=== PATIENT | female | born 1985 | race Caucasian/White ===

== ENCOUNTER 2017-06-26 06:00 | Inpatient (IN) ==
[2017-06-26] MEDS ORDERED: CALCIUM CARBONATE Chewable 500mg TABLET PO PRN ×2 (06:08→13:33)
[2017-06-26] MEDS ORDERED: METHYLERGONOVINE 0.2 MG/ML INJECTION IM PRN (06:08)
[2017-06-26] MEDS ORDERED: OXYTOCIN DRIP 30 UNIT/500 ML ML IV PRN (06:08)
[2017-06-26] MEDS ORDERED: CARBOPROST 250 MCG/ML INJECTION IM PRN (06:08)
[2017-06-26] MEDS ORDERED: LIDOCAINE 1% (10mg/ml) 2mL INJ PF SDV ID PRN (06:08)
[2017-06-26] MEDS ORDERED: MAG-AL + SIM ORAL LIQUID 30ml PO PRN ×2 (06:08→13:33)
[2017-06-26] MEDS ORDERED: ACETAMINOPHEN 500 MG TABLET PO PRN ×2 (06:08→13:33)
[2017-06-26] MEDS ORDERED: D5LR 1,000 ML IV PRN (06:08)
--- OUTSIDE RECORDS SUMMARY | 2017-06-26 06:10 | External Medical Summary | Continuity of Care Document ---
:1985 Author Organization [facility] Address [address] [place], [place] [id number] Phone Care Team Providers Name Role Phone Meredith Landaverde MD Unavailable Unavailable Allergies, Adverse Reactions, Alerts Substance Reaction Severity Status No Known Drug Allergies Unknown Active Medications Medication Instructions Dosage Effective Dates (start - Status Comments stop) folic acid 0.8 mg capsule - Active ORAL TABLET - Active Problems Condition Effective Dates (start - stop) Clinical Status Partial Placenta Previa Nos Or W/out - Hemorrhage, Second Trimester 20 weeks gestation of - Encounter for suprvsn of normal - , first trimester 11 weeks gestation of - Encounter for suprvsn of normal - , second trimester Encounter For Screening For - Malformations 20 weeks gestation of - Encounter for suprvsn of normal - , second trimester 15 weeks gestation of - Irregular Bleeding Active Procedures Procedure Date OB Visit No Charge Results Test Name Date and Time Measure Units Reference Range Abnormal Flag Comments Unknown Advance Directives Directive Yes / No Effective Date File Name Unknown Encounters Encounter Practice Location Reason(s) Diagnoses Date Provider Care Team Description For Visit Members Nayely [place] Partial Placenta Zuleta Referring In Womens Previa Nos Or 4-201 Danita. Provider: Health PA, W/out Hemorrhage, 7 700 Lucie [address] [facility] Meli, 1522, [id number] weeks Center [address] [place], gestation of Adrian Quinonez, 120, Center [id number], [place], [facility] 120, [place] FISHER, tel:[phone] [place], , [place]. [id number]. tel: tel: [phone] Nayely [place] Encounter for Oct-0 Tadeo Referring In Womens Ultrasound suprvsn of normal 4-201 Sushil. 700 Provider: [facility] AMANDA, , second 7 Medical Lucie [address] trimesterEncounte [place] Cale [place], 1522, r For Adrian Quinonez, Screening For 120, Medical NATALIA, [id number] [facility] [id number], weeks gestation NATALIA Adrian 120, [place] [id number] [place], tel: , [place]. [place], tel: [phone]. [id number] tel:[phone] Nayely [place] Encounter for Aug-3 Tadeo Referring In Womens suprvsn of normal 0-201 Sushil. 700 Provider: Health AMANDA, , second 7 Medical Lucie [address] [email or web address] weeks [place] Cale [place], 1522, gestation of [place] Quinonez, 120, Medical [place] [facility] [id number], [place]IA, [facility] 120, [place] [id number] [place], tel: , [place]. [place], tel: [phone]. [id number] tel:[phone] Nayely [place] Encounter for Aug-0 Tadeo Referring In Womens suprvsn of normal 3-201 Sushil. 700 Provider: Health AMANDA, , first 7 Medical Lucie [address] [id number] weeks [place] Cale G[place], 1522, gestation of [place] Quinonez, 120, Medical [place] [facility] [id number], [place], [facility] 120, [place] [id number] [place], tel: , [place], tel:[phone]. [id number] tel:[phone] Family History Family Member Diagnosis Age At Onset No family history of Breast Cancer No family history of Thyroid Disorder No family history of Diabetes No family history of Epilepsy No family history of Osteoporosis No family history of Cardiovascular Disease No family history of Kidney Disease No family history of Lung Disease No family history of Ovarian Cancer No family history of Uterine Cancer No family history of Colon Cancer No family history of Hypertension No family history of Stroke Immunizations Vaccine Date Status Comments Unknown Payers Payer name Insurance type Covered libertarian ID Authorization(s) [employer] [id number] Social History Type Description Quantity Date Captured Alcohol Use Details No Caffeine Use Details Unknown Tobacco Use Status Unknown Smoking Status Never smoker Vital Signs Date / Height Weight BMI Pulse Blood Temperature Respiratory Body Head BMI Time: Rate Pressure Rate Surface Circumference percentile Area 153.60 23.3 106/ lbs 5 mm[Hg] 4:10 kg/m PM eter (2) Chief Complaint And Reason For Visit Unknown Chief Complaint And Reason For Visit Reason For Referral Reason For Referral Unknown Plan Of Care Date Type Action Status Appointment Lori Valdez BOOKED Future Order: Radiology Order Complete OB Ultrasound > 14 Ordered Weeks ([id number]) Date Type Problem Goal Intervention Status Start Date Unknown. History Of Present Illness Encounter Date Complaint History Of Present Illness This patient has no known history of present illness Functional Status Encounter Date Functional Assessment Cognitive Assessment Unknown Medications Administered Medication Instructions Dosage Effective Dates (start - stop) Status Comments Drug Treatment Unknown Instructions Date Instruction Additional Information environmental / work hazards travel use of any medications (including supplements, vitamins, herbs, OTC drugs) domestic violence seat belt use childbirth classes / hospital facilities hospital registration genetic testing new ob handbook Zika virus assessment & precautions sexual activity exercise indications for ultrasound influenza vaccine HIV and other routine tests risk factors identified by history anticipated course of care nutrition and weight gain counseling, special diet toxoplasmosis precautions (cats / raw meat)
--- OUTSIDE RECORDS SUMMARY | 2017-06-26 06:10 | External Medical Summary ---
:1985 Author Organization [facility]. Summary purpose CCDA Sent to [facility] Chief Complaint and Reason for Visit Admit Diagnosis 1 SUPERVIS OTH NORMAL PREG Problem list No authorized problems tracked for continuity of care are available for this visit. Encounters No authorized problems tracked for encounter diagnoses are available for this visit. Medications No home medications recorded for this patient visit Allergies, adverse reactions, alerts Allergen Category Ingredient Status Reaction Severity Onset No Allergy Information Drug No Allergy Information Active Available Available Immunizations No immunizations recorded for this patient visit Relevant diagnostic tests and/or laboratory data RESULTS CBC [id number]:05:00 HGB 13.4 Chemistry Group [id number]:05:00 Glucose Fasting 77 History of procedures Procedure Code Code Type Description Date Performed Performing Physician 85753 CPT-4 ROUTINE VENIPUNCTURE 02-02-2015 [facility] 03760 CPT-4 ROUTINE VENIPUNCTURE 02-02-2015 [facility] 14859 CPT-4 ASSAY GLUCOSE BLOOD 02-02-2015 [facility] QUANT 29274 CPT-4 GLUCOSE TEST 02-02-2015 [facility] 73253 CPT-4 HEMOGLOBIN 02-02-2015 [facility] Functional status No functional or cognitive status observations are available for this visit. Vital signs No authorized vital signs are available for this visit. Social history No Social History or smoking status observations were recorded for this visit. ( Unknown if ever smoked.) Treatment Plan No treatment plan text is available for this visit. Hospital discharge instructions No discharge instruction text is available for this visit.
--- OUTSIDE RECORDS SUMMARY | 2017-06-26 06:10 | External Medical Summary | Continuity of Care Document ---
:1985 Author Organization [facility] Address [address] [place], [place] [id number] Phone Care Team Providers Name Role Phone Meredith Landaverde MD Unavailable Unavailable Allergies, Adverse Reactions, Alerts Substance Reaction Severity Status No Known Drug Allergies Unknown Active Medications Medication Instructions Dosage Effective Dates (start - Status Comments stop) folic acid 0.8 mg capsule - Active ORAL TABLET - Active Problems Condition Effective Dates (start - stop) Clinical Status Encounter for suprvsn of normal - , third trimester 32 weeks gestation of - Encounter for suprvsn of normal - , first trimester 11 weeks gestation of - Partial Placenta Previa Nos Or W/out - Hemorrhage, Second Trimester 20 weeks gestation of - Partial Placenta Previa Nos Or W/out - Hemorrhage, Third Trimester 32 weeks gestation of - Encounter for suprvsn of normal - , second trimester Encounter For Screening For - Malformations 20 weeks gestation of - Encounter for suprvsn of normal - , second trimester 24 weeks gestation of - Encounter for suprvsn of normal - , second trimester 15 weeks gestation of - Encounter for suprvsn of normal - , third trimester 28 weeks gestation of - Encounter for suprvsn of normal - , third trimester 30 weeks gestation of - Encounter for suprvsn of normal - , third trimester 34 weeks gestation of - Irregular Bleeding Active Procedures Procedure Date OB Visit No Charge Results Test Name Date and Time Measure Units Reference Range Abnormal Flag Comments Unknown Advance Directives Directive Yes / No Effective Date File Name Unknown Encounters Encounter Practice Location Reason(s) Diagnoses Date Provider Care Team Description For Visit Members Nayely [place] Encounter for Martínez Referring In Womens suprvsn of normal 0-201 Jaqueline. Provider: Health AMANDA, , third 8 700 Sushil [address] [email or web address] weeks Medical Tadeo R, 1522, gestation of [place] [address], [facility], 120, [place] [id number], [place], [facility] 120, [place] FISHER, tel: [phone] [place], , [place]. [id number]. tel: tel: [phone] Nayely [place] Encounter for Dec-2 Tadeo Referring In Womens suprvsn of normal 7-201 Sushil. 700 Provider: Pierre PATEL, , third 7 Medical Lucie [address] [email or web address] weeks [place] Cale [place], 1522, gestation of [place] Quinonez, 120, Medical [place] [facility] [id number], [place], [facility] 120, [place] [id number] [place], tel: , . [place], tel: [phone]. [phone] tel:[phone] Nayely [place] Partial Placenta Dec-2 Tadeo Referring In Womens Ultrasound Previa Nos Or 7-201 Sushil. 700 Provider: Health AMANDA, W/out Hemorrhage, 7 Medical Lucie PO Box Third [id number] [place] Cale [place], 1522, weeks gestation Adrian Quinonez, of 120, Medical [facility] [id number], [place], [facility] 120, [place] [id number] [place], tel: , . [place], tel: [phone]. [phone] tel:[phone] Nayely [place] Encounter for Dec-1 Tadeo Referring In Womens suprvsn of normal 3-201 Sushil. 700 Provider: Health AMANDA, , third 7 Medical Lucie [address] Box [email or web address] weeks Center Cale [place], 1522, gestation of [place] Quinonez, 120, Medical [place] [facility] [id number], [place], [facility] 120, [place] [id number] [place], tel: , [place]. [place], tel: [phone]. [phone] tel:[phone] Nayely [place] Encounter for Nov-2 Tadeo Referring In Womens suprvsn of normal 9-201 Sushil. 700 Provider: Pierre PATEL, , third 7 Medical Lucie PO Box weeks [place] Cale [place], 1522, gestation of [place] Quinonez, 120, Medical [place] [facility] [id number], [place], [facility] 120, [place] [id number] [place], tel: , [place]. [place], tel: [phone]. [phone] tel:[phone] Nayely [place] Encounter for Nov-0 Tadeo Referring In Womens suprvsn of normal 3-201 [place]. 700 Provider: Pierre PATEL, , second 7 Medical Lucie PO Box [id number] weeks [place] Cale [place], 1522, gestation of Adrian Quinonez, 120, [facility] [place] [facility] [id number], [place], [facility] 120, [place] [id number] [place], tel: , [place]. [place], tel: [phone]. [phone] tel:[phone] Nayely [place] Partial Placenta Oct-0 Zuleta Referring In Womens Previa Nos Or 4-201 Danita. Provider: Health AMANDA, W/out Hemorrhage, 7 700 Lucie PO Box Second [facility] Cale Garrison, 1522, [id number] weeks Miguel Lau, gestation of Adrian Quinonez, 120, Center [id number], [place], [facility] 120, [place] FISHER, tel: [phone] [place], , [place]. [id number]. tel: tel:[phone] Nayely [place] Encounter for Oct-0 Tadeo Referring In Womens Ultrasound suprvsn of normal 4-201 Sushil. 700 Provider: Health AMANDA, , second 7 Medical Lucie PO Box trimesterEncounte Center Cale [place]arrison, 1522, r For [place] Quinonez, Screening For 120, Medical NATALIA, [id number] [facility] [id number], weeks gestation NATALIA, Adrian 120, [place] [id number] [place], tel: , [place]. [place], tel: [phone]. [id number] tel:[phone] Nayely [place] Encounter for Dec-3 Tadeo Referring In Womens suprvsn of normal 0-201 Sushil. 700 Provider: Health AMANDA, , second 7 Medical Lucie Gonzalez [email or web address] weeks Center Cale G[place], 1522, gestation of [place] Quinonez, 120, Medical [place] [facility] [id number], [place], [place] 120, [place] [id number] [place], tel: , [place]. [place], tel: [phone]. [id number] tel:[phone] Nayely [place] Encounter for Aug-0 Tadeo Referring In Womens suprvsn of normal 3-201 Sushil. 700 Provider: Pierre PATEL, , first 7 Medical Lucie Gonzalez [id number] weeks Center Cale G[place], 1522, gestation of [place] Quinonez, 120, Medical [place] [facility] [id number], [place], [place] 120, [place] [id number] [place], tel: , [place]. NATALIA, tel: [phone]. [phone] tel:[phone] Family History Family Member Diagnosis Age At [...] of Stroke Immunizations Vaccine Date Status Comments Tdap completed Source: New Immunization Record Payers Payer name Insurance type Covered green party ID Authorization(s) [facility] [id number] [employer] [place] [id number] [facility] [id number] [employer] [place] [id number] Social History Type Description Quantity Date Captured Alcohol Use Details No Caffeine Use Details Unknown Tobacco Use Status Unknown Smoking Status Never smoker Vital Signs Date / Height Weight BMI Pulse Blood Temperature Respiratory Body Head BMI Time: Rate Pressure Rate Surface Circumference percentile Area 167.80 25.5 / lbs 1 mm[Hg] 2:20 kg/m PM eter (2) Chief Complaint And Reason For Visit Unknown Chief Complaint And Reason For Visit Reason For Referral Reason For Referral Unknown Plan Of Care Date Type Action Status Appointment Lori Valdez BOOKED Future Order: Radiology Order Ultrasound OB Follow-up ([id number]) Ordered Future Order: Radiology Order Complete OB Ultrasound > 14 Ordered Weeks ([id number]) Date Type Problem Goal Intervention Status Start [...]
--- OUTSIDE RECORDS SUMMARY | 2017-06-26 06:10 | External Medical Summary | Continuity of Care Document ---
:1985 Author Organization [facility] Address [address] [place], [place] [address] Phone Care Team Providers Name Role Phone [...] third trimester 28 weeks gestation of - Irregular Bleeding Active Procedures Procedure Date OB Visit No Charge Results Test Name Date and Time Measure Units Reference Range Abnormal Flag Comments Unknown Advance Directives Directive Yes / No Effective Date File Name Unknown Encounters Encounter Practice Location Reason(s) Diagnoses Date Provider Care Team Description For Visit Members Nayely [place] Encounter for Dec-2 Tadeo Referring In Womens suprvsn of normal 7-201 Sushil. 700 Provider: Health PA, , third 7 Medical Lucie [address] Box [id number] weeks Center Cale [place], 1522, gestation of [place] Quinonez, 120, Medical [place] [facility] [id number], [place], [facility] 120, [place] [id number] [place], tel:+ , [place]. NAT[place]IA, tel: [phone]. [phone] tel:[phone] Nayely [place] Partial Placenta Dec-2 Tadeo Referring In Womens Ultrasound Previa Nos Or 7-201 Sushil. 700 Provider: Health AMANDA, W/out Hemorrhage, 7 Medical Lucie PO Box Third [id number] Center Cale Garrison, 1522, weeks gestation Adrian Quinonez, of 120, [facility] [place] [facility] [id number], [place], [facility] 120, [place] [id number] [place], tel: , . NATALIA, tel: [phone]. [phone] tel:[phone] Nayely [place] Encounter for Dec-1 Tadeo Referring In Womens suprvsn of normal 3-201 Sushil. 700 Provider: Health PA, , third 7 Medical Lucie [address] Box [email or web address] weeks Center Cale G[place], 1522, gestation of [place] Quinonez, 120, Medical [place] [facility] [id number], [place], [facility] 120, [place] [id number] [place], tel: , . NATALIA, tel: [phone]. [phone] tel:[phone] Nayely [place] Encounter for Nov-2 Tadeo Referring In Womens suprvsn of normal 9-201 Sushil. 700 Provider: Health PA, , third 7 Medical Lucie PO Box [id number] weeks [place] Cale Garrison, 1522, gestation of Adrian Quinonez [place], 120, Medical [place] [facility] [id number], NATALIA, [facility] 120, [place] [id number] [place], tel:+ , [place]. [place], tel: [phone]. [phone] tel:[phone] Nayely [place] Encounter for Nov-0 Tadeo Referring In Womens suprvsn of normal 3-201 Sushil. 700 Provider: Pierre PATEL, , second 7 Medical Lucie PO Box [id number] weeks [place] Cale Garrison, 1522, gestation of Adrian Quinonez [place], 120, Medical [place] [facility] [id number], NATALIA, [facility] 120, [place] [id number] [place], tel:+ , [place]. [place], tel: [phone]. [id number] tel:[phone] Nayely [place] Partial Placenta Oct-0 Zuleta Referring In Womens Previa Nos Or 4-201 Danita. Provider: Pierre PATEL, W/out Hemorrhage, [address] [place] [address] Cale Garrison, 1522, [id number] weeks [place], gestation of Dr [facility] Cristiano [place], 120, [place] [id number], [facility], [place] FISHER, tel: [phone] NATALIA, , [place]. [id number]. tel: tel: [phone] Nayely [place] Encounter for Oct-0 Tadeo Referring In Womens Ultrasound suprvsn of normal 4-201 Sushil. 700 Provider: Pierre PATEL, , second 7 Medical Lucie PO Box trimesterEncounte Center Cale Garrison, 1522, r For Adrian Quinonez, Screening For 120, Medical NATALIA, [id number] [facility] [id number], weeks gestation NATALIA [facility] 120, [place] [id number] [place], tel: , [place]. [place], tel: [phone]. [id number] tel:[phone] Nayely [place] Encounter for Aug-3 Tadeo Referring In Womens suprvsn of normal 0-201 Sushil. 700 Provider: Pierre PATEL, , second 7 Medical Lucie PO Box [email or web address] weeks Center Cale G[place], 1522, gestation of [place] Quinonez, 120, Medical [place] [facility] [id number], [place], [facility] 120, [place] [id number] [place], tel: , . NATALIA, tel: [phone]. [id number] tel:[phone] Nayely [place] Encounter for Tadeo Referring In Womens suprvsn of normal 3-201 [place]. 700 Provider: Pierre PATEL, , first 7 Medical Lucie PO Box [email or web address] weeks Center Cale Garrison, 1522, gestation of [place] Quinonez, 120, Medical [place] [facility] [id number], [place], [facility] 120, [place] [id number] [place], tel: , . NATALIA, tel: [phone]. [id number] tel:[phone] Family History Family Member Diagnosis Age At [...] Unknown Payers Payer name Insurance type Covered green party ID Authorization(s) [facility] [id number] [employer] [place] - [place] [id number] Social History Type Description Quantity Date Captured Alcohol Use Details No Caffeine Use Details Unknown Tobacco Use Status Unknown Smoking Status Never smoker Vital Signs Date / Height Weight BMI Pulse Blood Temperature Respiratory Body Head BMI Time: Rate Pressure Rate Surface Circumference percentile Area 165.70 25.1 lbs 9 mm[Hg] 3:33 kg/m PM eter (2) Chief Complaint And Reason For Visit Unknown Chief Complaint And Reason For Visit Reason For Referral Reason For Referral Unknown Plan Of Care Date Type Action Status Appointment Lori Valdez BOOKED Future Order: Radiology Order Ultrasound OB Follow-up ([id number]) Ordered Future Order: Radiology Order Complete OB Ultrasound > 14 Ordered Weeks ([id number]) Date Type Problem Goal Intervention Status Start [...]
--- OUTSIDE RECORDS SUMMARY | 2017-06-26 06:10 | External Medical Summary | Continuity of Care Document ---
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 Results Test Name Date and Time Measure Units Reference Range Abnormal Flag Comments Panel Description: OBSTETRIC PANEL WHITE BLOOD CELL 8.4 Thousand/uL 3.8-10.8 N COUNT 11:42:00 RED BLOOD CELL 4.65 Million/uL 3.80-5.10 N COUNT 11:42:00 HEMOGLOBIN 14.6 g/dL 11.7-15.5 N 11:42:00 HEMATOCRIT 42.5 % 35.0-45.0 N 11:42:00 MCV 91.4 fL 80.0-100.0 N 11:42:00 MCH 31.4 pg 27.0-33.0 N 11:42:00 MCHC 34.4 g/dL 32.0-36.0 N 11:42:00 RDW 12.6 % 11.0-15.0 N 11:42:00 PLATELET COUNT 315 Thousand/uL 140-400 N 11:42:00 MPV 10.0 fL 7.5-12.5 N 11:42:00 ABSOLUTE 6208 cells/uL 4398-0994 N NEUTROPHILS 11:42:00 ABSOLUTE 1630 cells/uL 850-3900 N LYMPHOCYTES 11:42:00 ABSOLUTE 437 cells/uL 200-950 N MONOCYTES 11:42:00 ABSOLUTE 109 cells/uL 15-500 N EOSINOPHILS 11:42:00 ABSOLUTE 17 cells/uL 0-200 N BASOPHILS 11:42:00 NEUTROPHILS 73.9 % N 11:42:00 LYMPHOCYTES 19.4 % N 11:42:00 MONOCYTES 5.2 % N 11:42:00 EOSINOPHILS 1.3 % N 11:42:00 BASOPHILS 0.2 % N 11:42:00 ANTIBODY SCREEN, NO ANTIBODIES N RBC W/REFL ID, 11:42:00 DETECTED Reference range TITER AND AG No antibodies detected This assay is a screening test for the detection of red blood cell antibodies. The test is not to be used for pretransfusion screening or for the medical management of an alloimmunized . ABO GROUP O 11:42:00 RH TYPE RH(D) 11:42:00 POSITIVE RPR (DX) W/REFL NON-REACTIVE NON-REACTIV N TITER AND 11:42:00 E CONFIRMATORY TESTING HEPATITIS B NON-REACTIVE NON-REACTIV N SURFACE ANTIGEN 11:42:00 E RUBELLA ANTIBODY 4.22 index N Index (IGG) 11:42:00 Interpretation ----- <0.90 Not consistent with Immunity 0.90-0.99 Equivocal > or=1.00 Consistent with Immunity The presence of rubella IgG antibody suggests immunization or past or current infection withrubella virus.Test performed [place] [address]Dxoixyz r: BISMARK MESA DO,MPH Panel Description: HIV 1/2 ANTIGEN/ANTIBODY,FOURTH GENERATION W/RFL HIV NON-REACTIVE NON-REACTIVE N HIV-1 antigen and HIV-1/HIV- 2 antibodies were AG/AB, 11:42:00 notdetected. There is no laboratory evidence of 4TH GEN HIVinfection. PLEASE NOTE: This information has been disclosed toyou from records whose confidentiality may beprotected by state law. If your state requires suchprotection, then the state law prohibits you frommaking any further disclosure of the informationwithout the specific written consent of the personto whom it pertains, or as otherwise permitted by law.A general authorization for the release of medical orother information is NOT sufficient for this purpose. For additional information please refer tohttp://education.Clickatell/faq/GDH112(This link is being provided for informational/educational purposes only.) The performance of this assay has not been clinicallyvalidated in patients less than 2 years old. Test performed [place] [address]Gabbsnro: BISMARK MESA DO,MPH Panel Description: Bacteria identified in Urine by Culture CULTURE, URINE, 11:40:00 SEE NOTE A CULTURE, URINE, ROUTINE ROUTINE MICRO NUMBER: [id number] TEST STATUS: PRELIMINARY SPECIMEN SOURCE: URINE SPECIMEN QUALITY: ADEQUATE RESULT: 50,000-100,000 CFU/mL of Escherichia coli , susceptibility test report to follow.REPORT COMMENT:RTest performed [place] [address]Wiwztytn: BISMARK MESA DO,MPH Panel Description: Bacteria identified in Urine by Culture CULTURE, URINE, 11:40:00 SEE NOTE A CULTURE, URINE, ROUTINE ROUTINE MICRO NUMBER: [id number] TEST STATUS: FINAL SPECIMEN SOURCE: URINE SPECIMEN QUALITY: ADEQUATE RESULT: 50,000-100,000 CFU/mL of Escherichia coli E.coli INT NALINI AMOX/CLAVULANATE S 4 AMPICILLIN S 8 AMP/SULBACTAM S 4 CEFAZOLIN NR <=4 1 CEFEPIME S <=1 CEFTRIAXONE S <=1 CIPROFLOXACIN S <=0.25 ERTAPENEM S <=0.5 GENTAMICIN S <=1 IMIPENEM S <=0.25 LEVOFLOXACIN S <=0.12 NITROFURANTOIN S <=16 PIP/TAZOBACTAM S <=4 TOBRAMYCIN S <=1 TRIMETHOPRIM/SULFA S <=20S=Susceptible I=Intermediate R=Resistant *=Not TestedNR=Not Reported NN=See Therapy CommentsTHERAPY COMMENTS Note 1: ORAL therapy: A cefazolin NALINI of < 32 predicts susceptibility to the oral agents cefaclor, cefdinir, cefpodoxime, cefprozil, cefuroxime, cephalexin, and loracarbef when used for therapy of uncomplicated UTIs due to E. coli, K. pneumoniae, and P. mirabilis. PARENTERAL therapy: A cefazolin NALINI of > 8 indicates resistance to parenteral cefazolin. An alternate test method must be performed to to confirm susceptibility to parenteral cefazolin.REPORT COMMENT:RTest performed at [facility] [id number] [facility] [place] [address]Jwoyteli: BISMARK MESA DO,MPH Panel Description: CHLAMYDIA/N. GONORRHOEAE RNA, TMA CHLAMYDIA NOT DETECTED NOT DETECTED N TRACHOMATIS RNA, 11:30:00 TMA NEISSERIA NOT DETECTED NOT DETECTED N GONORRHOEAE RNA, 11:30:00 TMA [id number] SEE NOTE This test was 11:30:00 performed using the APTIMA COMBO2 Assay([employer] The analytical performance characteristics of this assay, when used to test SurePath specimens havebeen determined by [employer]. Test performed at [facility] [id number] [place] [address]Iwojbhjd: BISMARK MESA DO,MPH Panel Description: Pap Smear With HPV Reflex If ASCUS Document Advance Directives Directive Yes / No Effective Date File Name Unknown Encounters Encounter Practice Location Reason(s) Diagnoses Date Provider Care Team Description For Visit Members Nayely [place] Encounter for Nov-0 Tadeo Referring In Womens suprvsn of normal 3-201 [place]. 700 Provider: Pierre PATEL, , second 7 Medical Lucie MALIN Box [email or web address] weeks [place] aCle [place], 1522, gestation of Adrian Quinonez, 120, Medical [facility] [id number], [facility] 120, [place] [id number] [place], tel: , [place]. [place], tel:[phone]. [id number] tel:[phone] Nayely [place] Partial Placenta Oct-0 Zuleta Referring In Womens Previa Nos Or 4-201 Dan[place]. Provider: Pierre PATEL, W/out Hemorrhage, [address] [place], [place] [address]lv Gonzalez [facility] Cale [place], 1522, [id number] weeks [place] Niya Lau, gestation of Dr [facility] Cristiano [place], 120, Center [id number], [facility], [place] FISHER, tel:[phone] [place], , [place]. [id number]. tel: tel: [phone] Nayely [place] Encounter for Oct-0 Tadeo Referring In Womens Ultrasound suprvsn of normal 4-201 [place]. 700 Provider: Pierre PATEL, , second 7 Medical Lucie Gonzalez trimesterEncounte Center Cale [place], 1522, r For Adrian Quinonez, Screening For 120, Medical NATAILA, [id number] [facility] [id number], weeks gestation [facility] 120, [place] of [id number] [place], tel:2 , [place]. [place] tel: [phone]. [id number] tel:[phone] Nayely [place] Encounter for Tadeo Referring In Womens suprvsn of normal 0-201 [place]. 700 Provider: Health PA, , second 7 Medical Lucie MALIN Box [id number] weeks Center Cale [place], 1522, gestation of Adrian Quinonezchita, 120, Medical [place] [facility] [id number], [place], [facility] 120, [place] [id number] [place], tel: , . [place], tel: [phone]. [id number] tel:[phone] Nayely [place] Encounter for Tadeo Referring In Womens suprvsn of normal 3-201 [facility] 700 Provider: Health PA, , first 7 Medical Lucie MALIN Box [id number] weeks Center Cale [place], 1522, gestation of Adrian Quinonezta, 120, Medical [facility] [id number], [place], [facility] 120, [place] [id number] [place], tel: , [facility], tel: [phone]. [id number] tel:[phone] Family History Family Member Diagnosis Age At [...] name Insurance type Covered libertarian ID Authorization(s) [facility] [id number] UHC Plan Of [place] - Medicaid MC [id number] Social History Type Description Quantity Date Captured Alcohol Use Details No Caffeine Use Details No Tobacco Use Status Never smoked tobacco Smoking Status Never smoker Vital Signs Date / Height Weight BMI Pulse Blood Temperature Respiratory Body Head BMI Time: Rate Pressure Rate Surface Circumference percentile Area 139.70 21.2 113/80 -2017 lbs 4 mm[Hg] 10:50 kg/m AM eter (2) Chief Complaint And Reason For Visit Unknown Chief Complaint And Reason For Visit Reason For Referral Reason For Referral Unknown Plan Of Care Date Type Action Status Appointment Lori Valdez BOOKED Future Order: Radiology Order Complete OB Ultrasound > 14 Ordered Weeks ([id number]) Date Type Problem Goal Intervention Status Start [...]
--- OUTSIDE RECORDS SUMMARY | 2017-06-26 06:10 | External Medical Summary | Continuity of Care Document ---
:1985 Author Organization [facility] [employer] [facility] Address [address] [place], [place] [address] Phone Care Team Providers Name Role Phone [...] - Irregular Bleeding Active Procedures Procedure Date Ultrasound exam of preg uterus, complete Results Test Name Date and Time Measure Units Reference Range Abnormal Flag Comments Unknown Advance Directives Directive Yes / No Effective Date File Name Unknown Encounters Encounter Practice Location Reason(s) Diagnoses Date Provider Care Team Description For Visit Members Associates [place] Partial Placenta Zuleta Referring In Womens Previa Nos Or 4-201 Danita. Provider: Health PA, W/out Hemorrhage, 7 700 Lucie [address] [facility] Meli, 1522, [id number] weeks Center 700 [place], gestation of Adrian Quinonez, 120, Center [id number], [place], [facility] 120, [place] FISHER, tel:[phone] [place], , [place]. [id number]. tel: tel:[phone] Nayely [place] Encounter for Oct-0 Tadeo Referring In Womens Ultrasound suprvsn of normal 4-201 [place]. 700 Provider: Health AMANDA, , second 7 Medical Lucie PO Box trimesterEncounte [place] Cale [place], 1522, r For Adrian Quinonez, Screening For 120, Medical NATALIA, [id number] [facility] [id number], weeks gestation Adrian FISHER 120, [place] of [id number] [place], tel: , [place]. [place], tel: [phone]. [id number] tel:[phone] Nayely [place] Encounter for Aug-3 Tadeo Referring In Womens suprvsn of normal 0-201 [place]. 700 Provider: Health AMANDA, , second 7 Medical Lucie PO Box [email or web address] weeks [place]ale [place], 1522, gestation of Adrian Quinonez, 120, Medical [place] [facility] [id number], NATALIA, [facility] 120, [place] [id number] [place], tel: , [place]. [place], tel: [phone]. [id number] tel:[phone] Nayely [place] Encounter for Aug-0 Tadeo Referring In Womens suprvsn of normal 3-201 [place]. 700 Provider: Health AMANDA, , first 7 Medical Lucie PO Box [email or web address] weeks [place] Cale [place], 1522, gestation of Adrian Quinonez, 120, Medical [place] [facility] [id number], [place], [facility] 120, [place] [id number] [place], tel: , [place]. [place], tel: [phone]. [id number] tel:[phone] Family History Family Member Diagnosis Age At [...] Unknown Payers Payer name Insurance type Covered democrat ID Authorization(s) [employer] [id number] Social History Type Description Quantity Date Captured Unknown Vital Signs Date / Height Weight BMI Pulse Blood Temperature Respiratory Body Head BMI Time: Rate Pressure Rate Surface Circumference percentile Area Unknown Chief Complaint And Reason For Visit Unknown Chief Complaint And Reason For Visit Reason For Referral Reason For Referral Unknown Plan Of Care Date Type Action Status Appointment Lori Valdez BOOKED Future Order: Radiology Order Complete OB Ultrasound > 14 Ordered Weeks ([id number]) Date Type Problem Goal Intervention Status Start [...]
--- OUTSIDE RECORDS SUMMARY | 2017-06-26 06:10 | External Medical Summary | Continuity of Care Document ---
:1985 Author Organization [facility] [employer] [facility] Address [address] [place], [place] [phone] Phone Care Team Providers Name Role Phone [...] - Irregular Bleeding Active Procedures Procedure Date Ultrasnd preg uterus, flwup/repeat Results Test Name Date and Time Measure Units Reference Range Abnormal Flag Comments Unknown Advance Directives Directive Yes / No Effective Date File Name Unknown Encounters Encounter Practice Location Reason(s) Diagnoses Date Provider Care Team Description For Visit Members Nayely [place] Encounter for Martínez Referring In Womens suprvsn of normal 0-201 [place]. Provider: Health AMANDA, , third 8 700 [place]ush[place] [address] Box [id number] weeks Medical Tadeo R, 1522, gestation of [place] Niya Lau, Dr [facility], 120, [place] [id number], [place], [facility] 120, [place] FISHER, tel: [phone] [place], , [place]. [id number]. tel: tel: [phone] Nayely [place] Encounter for Apr-2 Tadeo Referring In Womens suprvsn of normal 7-201 [place]. 700 Provider: Pierre PATEL, , third 7 Medical Lucie MALIN Box [id number] weeks [place], 1522, gestation of Adrian Quinonez, 120, Medical [facility] [id number], [place], [facility] 120, [place] [id number] [place], tel: , . [place], tel: [phone]. [id number] tel:[phone] Nayely [place] Partial Placenta Dec-2 Tadeo Referring In Womens Ultrasound Previa Nos Or 7-201 [place]. 700 Provider: Health AMANDA, W/out Hemorrhage, 7 Medical Lucie PO Box Third [id number] [place], 1522, weeks gestation Adrian Quinonez, of 120, Medical [place] [facility] [id number], [place], [facility] 120, [place] [id number] [place], tel: , . [place], tel: [phone]. [id number] tel:[phone] Nayely [place] Encounter for Dec-1 Tadeo Referring In Womens suprvsn of normal 3-201 [place]. 700 Provider: Health AMANDA, , third 7 Medical Lucie PO Box [id number] weeks [place], 1522, gestation of Adrian Quinonez, 120, Medical [place] [facility] [id number], [place], [facility] 120, [place] [id number] [place], tel: , [place]. [place], tel: [phone]. [id number] tel:[phone] Nayely [place] Encounter for Nov-2 Tadeo Referring In Womens suprvsn of normal 9-201 [place]. 700 Provider: Health AMANDA, , third 7 Medical Lucie MALIN Box [id number] weeks [place], 1522, gestation of Adrian Quinonez, 120, Medical [place] [facility] [id number], [place], [facility] 120, [place] [id number] [place], tel: , [place]. [place], tel: [phone]. [id number] tel:[phone] Nayely [place] Encounter for Nov-0 Tadeo Referring In Womens suprvsn of normal 3-201 [place]. 700 Provider: Pierre PATEL, , second 7 Medical Lucie Gonzalez [id number] weeks [place], 1522, gestation of Adrian Quinonez, 120, [facility] [place] [facility] [id number], [place], [facility] 120, [place] [id number] [place], tel: , [place]. [place], tel: [phone]. [id number] tel:[phone] Nayely [place] Partial Placenta Oct-0 Zuleta Referring In Womens Previa Nos Or 4-201 Danita. Provider: Health AMANDA, W/out Hemorrhage, 7 Niya Faulkner PO Box Second [facility] Cale [place]arrison, 1522, [id number] weeks Miguel Lau, gestation of Adrian Quinonez [place], 120, Center [id number], [place], [facility] 120, [place] FISHER, tel: [phone] [place], , [place]. [id number]. tel: tel: [phone] [place] Encounter for Oct-0 Tadeo Referring In Womens Ultrasound suprvsn of normal 4-201 [place]. 700 Provider: Pierre PATEL, , second 7 Medical Lucie PO Box trimesterEncounte Center Cale [place], 1522, r For Adrian Quinonez, Screening For 120, Medical NATALIA, [id number] [facility] [id number], weeks gestation [place], Adrian 120, [place] of [id number] [place], tel: , [place]. [place], tel: [phone]. [id number] tel:[phone] Nayely [place] Encounter for Aug-3 Tadeo Referring In Womens suprvsn of normal 0-201 [place]. 700 Provider: Pierre PATEL, , second 7 Medical Lucie Gonzalez [id number] weeks Center Cale [place], 1522, gestation of Adrian Quinonez, 120, Medical [place] [facility] [id number], [place], Adrian 120, [place] [id number] [place], tel: , [place]. [place], tel: [phone]. [id number] tel:[phone] Nayely [place] Encounter for Aug-0 Tadeo Referring In Womens suprvsn of normal 3-201 [place]. 700 Provider: Pierre PATEL, , first 7 Medical Lucie Gonzalez [id number] weeks Center Cale [place], 1522, gestation of Adrian Quinonez, 120, Medical [place] [facility] [id number], [place], Adrian 120, [place] [id number] [place], tel: , [place]. NATALIA, tel: [phone]. [id number] tel:[phone] Family History Family Member Diagnosis Age At [...] Record Payers Payer name Insurance type Covered libertarian ID Authorization(s) [facility] [id number] [employer] Plan Of [place] - Medicaid MC [id number] [facility] [id number] [employer] [place] - Medicaid [place] [id number] Social History Type Description Quantity Date Captured [...] Future Order: Radiology Order Ultrasound OB Follow-up ([id number]) Ordered Future Order: Radiology Order Complete OB Ultrasound > 14 Ordered Weeks ([id number]) Date Type Problem Goal Intervention Status Start [...]
--- OUTSIDE RECORDS SUMMARY | 2017-06-26 06:10 | External Medical Summary | Continuity of Care Document ---
:1985 Author Organization [facility] Address [address] [place], [place] [phone] Phone Care Team Providers Name Role Phone [...] For Visit Members Nayely [place] Encounter for Tadeo [facility] In [facility] suprvsn of normal 3-201 [place]. 700 Provider: Health PA, , second 7 Medical Lucie PO Box [email or web address] weeks [place] Cale [place], 1522, gestation of Adrian Quinonez, 120, Medical [place] [facility] [id number], [place], [facility] 120, [place] [id number] [place], tel:+ , [place]. [place], tel: [phone]. [id number] tel:[phone] Nayely [place] Partial Placenta Oct-0 Zuleta Referring In Womens Previa Nos Or 4-201 Danita. Provider: Health AMANDA, W/out Hemorrhage, 7 700 Lucie PO Box Second Medical [place] Meli, 1522, [id number] weeks [place] Niya Lau, gestation of Dr Adrian Cristiano FISHER, 120, Center [id number], [facility] 120, [place] FISHER, tel:[phone] [place], , [place]. [id number]. tel: tel: [phone] Nayely [place] Encounter for Oct-0 Tadeo Referring In Womens Ultrasound suprvsn of normal 4-201 [place]. 700 Provider: Pierre PATEL, , second 7 Medical Lucie PO Box trimesterEncounte Center Cale [place], 1522, r For Adrian Quinonez, Screening For 120, Medical NATALIA, [id number] [facility] [id number], weeks gestation [place], [facility] 120, [place] of [id number] [place], tel:+ , [place]. [place], tel: [phone]. [id number] tel:[phone] Nayely [place] Encounter for Aug-3 Tadeo Referring In Womens suprvsn of normal 0-201 [place]. 700 Provider: Pierre PATEL, , second 7 Medical Lucie PO Box [id number] weeks [place] Cale G[place], 1522, gestation of Adrian Quinonez, 120, Medical [place] [facility] [id number], [place], [facility] 120, [place] [id number] [place], tel:+2 , [place]. [place], tel: [phone]. [id number] tel:[phone] Nayely [place] Encounter for Aug-0 Tadeo Referring In Womens suprvsn of normal 3-201 [place] [address] Provider: Health PA, , first 7 Medical Lcuie MALIN Box [id number] weeks Center Cale [place], 1522, gestation of Adrian Quinonez 700 [place], 120, Medical [place], [facility] [id number], NATALIA, [facility] 120, [place] [id number] [place], tel: , [place]. NATALIA, [id number] tel: [phone]. [phone] tel:[phone] Family History Family Member Diagnosis Age At [...] Insurance type Covered green party ID Authorization(s) [facility] [id number] [employer] Plan Of [place] - Medicaid [place] [id number] Social History Type Description Quantity Date Captured Alcohol Use Details No Caffeine Use Details Unknown Tobacco Use Status Unknown Smoking Status Never smoker Vital Signs Date / Height Weight BMI Pulse Blood Temperature Respiratory Body Head BMI Time: Rate Pressure Rate Surface Circumference percentile Area 159.30 24.2 / lbs 2 mm[Hg] 2:08 kg/m PM eter (2) Chief Complaint And Reason For Visit Unknown Chief Complaint And Reason For Visit Reason For Referral Reason For Referral Unknown Plan Of Care Date Type Action Status Appointment Lori Valdez BOOKED Future Order: Radiology Order Complete OB Ultrasound > 14 Ordered Weeks ([id number]) Date Type Problem Goal Intervention Status Start [...]
--- OUTSIDE RECORDS SUMMARY | 2017-06-26 06:10 | External Medical Summary | Continuity of Care Document ---
:1985 Author Organization [facility] Address [address] [place], [place] [address] Phone Care Team Providers Name Role Phone [...] first trimester 11 weeks gestation of - Irregular Bleeding Active Procedures Procedure Date OB Visit No Charge Results Test Name Date and Time Measure Units Reference Range Abnormal Flag Comments Unknown Advance Directives Directive Yes / No Effective Date File Name Unknown Encounters Encounter Practice Location Reason(s) Diagnoses Date Provider Care Team Description For Visit Members Nayely In [place] Encounter Tadeo Referring [facility] for suprvsn -2017 [place]. 700 Provider: AMANDA, PO Box of normal Medical Lucie 1522, , Center [place], [place], second Adrian 120, 700 Medical [id number], [place] [id number] [place] tel:[phone] weeks [place], Adrian 120, 6790 gestation [id number], [place], of [place]. [id number]. tel: tel: [phone] Associates In [place] Encounter Tadeo Referring [facility] for suprvsn -2017 Sush[place]. 700 Provider: DEA PATEL of normal Medical Lucie 1522, , Center Cale Quinonez, [place], [place], first Adrian 120, 700 Medical [id number], [place] [id number] [place], [place] tel:9 weeks [place], Adrian 120, 6790 gestation [id number], [place], [place], of [place]. [id number]. tel: tel: [phone] Family History Family Member Diagnosis Age At [...] Unknown Payers Payer name Insurance type Covered republican ID Authorization(s) [id number] Social History Type Description Quantity Date Captured Alcohol Use Details No Caffeine Use Details Unknown Tobacco Use Status Unknown Smoking Status Never smoker Vital Signs Date / Height Weight BMI Pulse Blood Temperature Respiratory Body Head BMI Time: Rate Pressure Rate Surface Circumference percentile Area 145.70 22.1 125/85 2017 lbs 5 mm[Hg] 4:16 kg/m PM eter (2) Chief Complaint And Reason For Visit Unknown Chief Complaint And Reason For Visit Reason For Referral Reason For Referral Unknown Plan Of Care Date Type Action Status Appointment Lori Valdez BOOKED Appointment Lori Valdez BOOKED Date Type Problem Goal Intervention Status Start [...]
--- OUTSIDE RECORDS SUMMARY | 2017-06-26 06:11 | External Medical Summary ---
:[address] [facility]. Summary purpose CCDA Sent to [facility] Chief Complaint and Reason for [...] Relevant diagnostic tests and/or laboratory data RESULTS [facility] [id number] Result Normal Range Units ABO Type O RH Type Positive Antibody Screen Negative Negative History of procedures Procedure Code Code Type Description Date Performed Performing Physician 37536 CPT-4 BLOOD TYPING SEROLOGIC 10-06-2014 [facility] CPT-4 BLOOD TYPING SEROLOGIC 10-06-2014 [facility] 78888 CPT-4 BLOOD TYPING PATIENT 10-06-2014 [facility] Functional status No functional or cognitive status [...]
--- OUTSIDE RECORDS SUMMARY | 2017-06-26 06:11 | External Medical Summary ---
:1985 Author Organization [facility] Summary purpose CCDA Sent to [facility] Chief Complaint and Reason for Visit No authorized Reason for Visit (Admitting Diagnosis) is available for this visit. Problem list Condition Status Certainty Chronicity Onset .Delivery, vaginal Discharged Encounters The following conditions tracked for encounter diagnoses were recorded for this visit: Finding or Diagnosis Status Certainty Chronicity Onset .Delivery, vaginal Discharged Medications Home Medications Medication Directions Started Status Source folic acid oral oral -Daily Current oral oral -Daily Current Allergies, adverse reactions, alerts Allergen Category Ingredient Status Reaction Severity Onset No Allergy Drug No Allergy Inactive Information Information Available Available No Known Drug No Known Drug No Known Drug Active Allergy Allergy Allergy Immunizations No immunizations recorded for this patient visit Relevant diagnostic tests and/or laboratory data RESULTS 07-33-569480:07:03 Discharge Summary 30 y/o G4now P3 delivered live female at 39 weeks gestation. 8#8oz. Apgars 8/9/9. Induction due to history of fast labors. Labor time 3 hours 45 minute with 5 minute pushing stage. Post- course unremarkable. CBC 62-03-192579:55:00 Result Normal Range Units HGB L 11.9 12.0-16.0 g/dl HCT L 35.1 37.0-47.0 % 52-01-816861:40:00 Result Normal Range Units WBC 6.45 4.8-10.8 x103/mm3 Neutrophil % H 70.1 50-70 % Lymph % 22.8 20-50 % Sublette % 4.0 1.0-9.0 % Eosinophil % 2.8 0-4 % Basophil % 0.3 0-2 % Neutrophil # 4.52 3.0-7.0 x103/mm3 Lymph # 1.47 1.0-4.0 x103/mm3 Sublette # 0.26 0.0-0.8 x103/mm3 Eosinophil # 0.18 0-0.5 x103/mm3 Basophil # 0.02 0-0.2 x103/mm3 RBC 4.35 4.20-5.40 x103/mm3 HGB 13.3 12.0-16.0 g/dl HCT 39.3 37.0-47.0 % MCV 90.3 81-99 FL MCH 30.6 27.0-31.0 pg MCHC 33.8 32.0-36.0 g/dl RDW 12.4 12-15 % Platelet 198 150-400 x103/mm3 MPV H 12.1 6.0-10.0 FL History of procedures Procedure Code Code Type Description Date Performed Performing Physician [id number] ICD10 Delivery of Products of 04-17-2015 SOPHY EARL Conception, External Approach [id number] ICD10 Repair Perineum Skin, 04-17-2015 SOPHY EARL External Approach [id number] ICD10 Drainage of Amniotic 04-17-2015 SOPHY EARL Fl, Therap from POC, Via Opening [id number] ICD10 Introduce of Oth Therap 04-17-2015 SOPHY EARL Subst into Fem Reprod, Via Opening [id number] ICD10 Introduce Regional 04-17-2015 SOPHY EARL Anesth in Epidural Space, Perc [id number] ICD10 Monitoring of POC, 04-17-2015 SOPHY EARL Cardiac Rate, Radio Electronics Technician Approach Functional status Functional Status Finding Observation Time Dexterity Right-handed :46 Weight Bearing Statu Full 34-41-389613:50 Transferring/Ambulat Independent 81-24-723513:46 Bathing Independent :46 Dressing Independent 31-92-543600:46 Eating Independent :46 Drinking Independent :46 Toileting Independent :46 Able to Turn Self in Independent :46 Stairs Independent :46 Cognitive Status Finding Observation Time Level of Consciousne Alert :31 Oriented to Person Yes :[address] Yes :31 Oriented to Time Yes :31 Eyes - KODY Yes 82-07-982360:00 Vital signs Type Value Date Respirations 16 :54 Pulse 66 :54 O2 Saturation 97% :54 Systolic Blood Press 119mm/HG :54 Diastolic Blood Pres 80mm/HG :54 Temperature (Fahr) 98.0Degrees :54 Height 68in :05 Weight 165LB :05 Social history Type Value Smoking Status NEVER SMOKER Treatment Plan Treatment Plan at Dismiss to home. Standard post vaginal delivery instructions given. Plans barrier contraception. Has follow-up appointment in 6 weeks. Hospital discharge instructions Diagnosis term cytotec induction, Diet as avila Activity Level as avila Follow up with [facility] Appointment Date and See Comments Comment: pt is going to make appt Other Instructions call if fever is greater than 101, no intercourse or tampons x 6 weeks. use stool softener as needed. return in 6 weeks for pp check up
--- OUTSIDE RECORDS SUMMARY | 2017-06-26 06:11 | External Medical Summary ---
:1985 Author Organization [facility] Summary purpose CCDA Sent to [facility] Chief Complaint and Reason for Visit No authorized Reason for Visit (Admitting Diagnosis) is available for this visit. Problem list Condition Status Certainty Chronicity Onset .Threatened Premature Labor - not delivered Active Encounters The following conditions tracked for encounter diagnoses were recorded for this visit: Finding or Diagnosis Status Certainty Chronicity Onset .Threatened Premature Labor - not delivered Active Medications No home medications recorded for this patient visit Allergies, adverse reactions, alerts Allergen Category Ingredient Status Reaction Severity Onset No Allergy Drug No Allergy Inactive Information Information Available Available No Known Drug No Known Drug No Known Drug Active Allergy Allergy Allergy Immunizations No immunizations recorded for this patient visit Relevant diagnostic tests and/or laboratory data RESULTS :59:05 Discharge Summary Pt admitted with pre-term contractions. No cervical change noted with overnight observation. CBC :25:00 WBC 10.39 Neutrophil % H 79.0 Lymph % L 13.9 [place] % 5.3 Eosinophil % 1.6 Basophil % 0.2 Neutrophil # H 8.21 Lymph # 1.44 [place] # 0.55 Eosinophil # 0.17 Basophil # 0.02 RBC L 4.01 HGB 12.3 HCT L 36.3 MCV 90.5 MCH 30.7 MCHC 33.9 RDW 12.2 Platelet 204 MPV H 10.9 Urinalysis :20:00 Result Normal Range Units Site VOID Color Yellow Urine Appearance Clear Specific [place] 1.015 pH 7.0 Protein Negative Negative Glucose Negative Negative Ketones Negative Negative Bilirubin Negative Negative Blood Negative Negative Nitrite Negative Negative Urobilinogen 0.2 Leukocyte Negative Negative Reference Lab Group :20:00 Result Normal Range Units Source VAG Result Amended on 2015-03-28 at 11:10:43. Previous status was MS. Culture Group B Strep See Comment .Site: Received : 03/24/15 12:46 .Order#: [id number] Group B Strep Culture FINAL 03/28/15 09:25 .Streptococcus agalactiae - (Group B) .isolated .Organisms are predictably sensitive to Beta-lactam drugs. If Penicillin .allergic, and susceptibility needed, fax add-on request to Client .Services ([phone]) within seven days of final report. BARRERA FOR RESULTS: * - NEW RESULT - RESULT WAS MODIFIED AFTER FINAL STATUS SET Group B Strep Culture performed at [facility] Reference Lab, [facility] [place][note 2] [place] [address] Senior Peoplesoft Developer Tommie Avendano, DO Urinalysis with Microscopic 29-30-293862:20:00 Result Normal Range Units Site VOID Color Yellow Urine Appearance Clear Specific [place] 1.015 pH 7.0 Protein Negative Negative Glucose Negative Negative Ketones Negative Negative Bilirubin Negative Negative Blood Negative Negative Nitrite Negative Negative Urobilinogen 0.2 Leukocyte Negative Negative History of procedures Procedure Code Code Type Description Date Performed Performing Physician G0378 CPT-4 HOSPITAL OBSERVATION 03-23-2015 [place] [address] CPT-4 COMPLETE CBC 03-23-2015 SOPHYISSAC BETANCOURT [facility] AUTOMATED 55323 CPT-4 URINALYSIS AUTO W/O 03-23-2015 [facility] SCOPE J7120 CPT-4 RINGERS LACTATE 03-23-2015 SOPHY ASIA [facility] INFUSION J7042 CPT-4 5% DEXTROSE/NORMAL 03-23-2015 SOPHY AYDEEStephon [facility] SALINE 41769 CPT-4 HYDRATION IV INFUSION 03-23-2015 SOPHY ASIA [facility] INIT 25879 CPT-4 HYDRATE IV INFUSION 03-24-2015 SOPHY ASIA [facility] ADD-ON Functional status Functional Status Finding Observation Time Dexterity Right-handed :16 Weight Bearing Statu Full 87-41-183125:16 Transferring/Ambulat Independent :16 Bathing Independent :16 Dressing Independent :16 Eating Independent :16 Drinking Independent :16 Toileting Independent :16 Able to Turn Self in Independent :16 Stairs Independent 15-99-744010:16 Cognitive Status Finding Observation Time Level of Consciousne Alert :30 Oriented to Person Yes :[address] Yes :30 Oriented to Time Yes :30 Vital signs Type Value Date Respirations 16 :50 Pulse 70 :50 Systolic Blood Press 119mm/HG :50 Diastolic Blood Pres 82mm/HG :50 Temperature (Fahr) 98.3Degrees :20 Height 68in 01-26-372822:20 Weight 163LB 81-10-522925:20 Social history Type Value Smoking Status NEVER SMOKER Treatment Plan Treatment Plan at Di Dismissed to home. Will have biophysical profile done later this morning. Hospital discharge instructions No discharge instruction text is available for this visit.
--- OUTSIDE RECORDS SUMMARY | 2017-06-26 06:11 | External Medical Summary | Continuity of Care Document ---
:1985 Author Organization [facility] Address [address] [place], [place] [address] Phone Care Team Providers Name Role Phone [...] third trimester 30 weeks gestation of - Irregular Bleeding Active Procedures Procedure Date OB Visit No Charge Results Test Name Date and Time Measure Units Reference Range Abnormal Flag Comments Panel Description: Glucose [Mass/volume] in Serum or Plasma --1 hour post 50 g glucose PO GLUCOSE, GESTATIONAL 88 mg/dL <140 N Test performed at [facility] SCREEN (50G)-140 15:10:00 DIAGNOSTICS [id number] [place] [address]Eocsnwwy: BISMARK MESA DO,MPH Panel Description: HEMOGLOBIN + HEMATOCRIT HEMOGLOBIN 15:10:00 11.1 g/dL 11.7-15.5 L HEMATOCRIT 15:10:00 32.9 % 35.0-45.0 L REPORT COMMENT:FASTING :NOTest performed at [facility] [id number] [place] [address]Lszmplev: BISMARK MESA DO,MPH Advance Directives Directive Yes / No Effective Date File Name Unknown Encounters Encounter Practice Location Reason(s) Diagnoses Date Provider Care Team Description For Visit Members Nayely [place] Encounter for Dec-1 Tadeo Referring In Womens suprn of normal 3-201 Sush[address]. 700 Provider: Pierre PATEL, , third 7 Medical Lucie [address] [id number] weeks [place]ale [place], 1522, gestation of [place] Quinonez [place], 120, [facility] [id number], [place], [facility] 120, [id number] [place], tel:+ , [facility], tel: [phone]. [id number] tel:[phone] Nayely [place] Encounter for Nov-2 Tadeo Referring In Womens suprvsn of normal 9-201 Sushil. 700 Provider: Pierre PATEL, , third 7 Medical Lucie [address] [id number] weeks [place]ale [place], 1522, gestation of [place] Quinonez, 120, Medical [facility] [id number], [place], [facility] 120, [place] [id number] [place], tel: , [facility], tel: [phone]. [id number] tel:[phone] Nayely [place] Encounter for Nov-0 Tadeo Referring In Womens suprvsn of normal 3-201 Sushil. 700 Provider: Pierre PATEL, , second 7 Medical Lucie [address] [id number] weeks [place]ale [place], 1522, gestation of [place] Quinonez, 120, Medical [place] [facility] [id number], [place], [place] 120, [place] [id number] [place], tel:+ , [place]. [place], tel: [phone]. [id number] tel:[phone] Nayely [place] Partial Placenta Oct-0 Zuleta Referring In Womens Previa Nos Or 4-201 Danita. Provider: Health AMANDA, W/out Hemorrhage, [address] [place], [place] [id number] PO Box Second [facility] Meli, 1522, [id number] weeks [place] Niya Lau, gestation of Dr [facility], 120, Center [id number], [place], [facility] 120, [place] FISHER, tel:[phone] [place], , [place]. [id number]. tel: tel:[phone] Nayely [place] Encounter for Oct-0 Tadeo Referring In Womens Ultrasound suprvsn of normal 4-201 Sushil. 700 Provider: Pierre PATEL, , second 7 Medical Lucie PO Box trimesterEncounte Center Cale [place], 1522, r For [place] Quinonez, Screening For 120, Medical NATALIA, [id number] [facility] [id number], weeks gestation [place], [facility] 120, [place] of [id number] [place], tel:+ , [place]. [place], tel: [phone]. [id number] tel:[phone] Nayely [place] Encounter for Aug-3 Tadeo Referring In Womens suprvsn of normal 0-201 Sushil. 700 Provider: Pierre PATEL, , second 7 Medical Lucie [address] [id number] weeks [place] Cale [place], 1522, gestation of [place] Quinonez, 120, Medical [place] [facility] [id number], [place], [facility] 120, [place] [id number] [place], tel:+ , [place]. [place], tel: [phone]. [id number] tel:[phone] Nayely [place] Encounter for Aug-0 Tadeo Referring In Womens suprvsn of normal 3-201 Sushil. 700 Provider: Health AMANDA, , first 7 Medical Lucie [address] [id number] weeks Center Cale [place], 1522, gestation of , Adrian 700 [place], 120, Medical [facility] [id number], [place], [facility] 120, [id number] [place], tel: , [place]. NATALIA, [id number] tel: [phone]. [id number] tel:[phone] Family History Family Member Diagnosis Age At [...] name Insurance type Covered democrat ID Authorization(s) [facility] [id number] [employer] Plan Of [place] - Medicaid MC [id number] Social History Type Description Quantity Date Captured Alcohol Use Details No Caffeine Use Details Unknown Tobacco Use Status Unknown Smoking Status Never smoker Vital Signs Date / Height Weight BMI Pulse Blood Temperature Respiratory Body Head BMI Time: Rate Pressure Rate Surface Circumference percentile Area 165.70 25.1 132/86 -2017 lbs 9 mm[Hg] 2:13 kg/m PM eter (2) Chief Complaint And Reason For Visit Unknown Chief Complaint And Reason For Visit Reason For Referral Reason For Referral Unknown Plan Of Care Date Type Action Status Appointment Lori Valdez BOOKED Appointment Lori Valdez BOOKED Future Order: Radiology Order Complete OB Ultrasound > 14 Ordered Weeks ([id number]) Date Type Problem Goal Intervention Status Start [...]
--- OUTSIDE RECORDS SUMMARY | 2017-06-26 06:11 | External Medical Summary | Continuity of Care Document ---
:1985 Author Organization [facility] Address [address] [place], [place] [address] Phone Care Team Providers Name Role Phone [...] W/out Hemorrhage, 7 700 Lucie [address] Box [facility] Meli, 1522, [id number] weeks Center 700 [place], gestation of [place] Quinonez, 120, Center [id number], [place], [facility] 120, [place] FISHER, tel:[phone] [place], , [place]. [id number]. tel: tel: [phone] Nayely [place] Encounter for Oct-0 Tadeo Referring In Womens Ultrasound suprvsn of normal 4-201 Sushil. 700 Provider: [facility] AMANDA, , second 7 Medical Lucie PO Box trimesterEncounte [place] Cale Garrison, 1522, r For Adrian Quinonez, Screening For 120, Medical NATALIA, [id number] [facility] [id number], weeks gestation NATALIA [place] 120, [place] of [id number] [place], tel: , [place]. [place], tel: [phone]. [id number] tel:[phone] Nayely [place] Encounter for Aug-3 Tadeo Referring In Womens suprvsn of normal 0-201 Sushil. 700 Provider: Health AMANDA, , second 7 Medical Lucie PO Box weeks [place] Cale [place], 1522, gestation of [place] Quinonez, 120, Medical [place] [facility] [id number], NATALIA, [facility] 120, [place] [id number] [place], tel: , [place]. [place], tel: [phone]. [id number] tel:[phone] Nayely [place] Encounter for Aug-0 Tadeo Referring In Womens suprvsn of normal 3-201 Sushil. 700 Provider: Health AMANDA, , first 7 Medical Lucie [address] [email or web address] weeks [place] Cale [place], 1522, gestation of [place] Quinonez, 120, Medical [place] [facility] [id number], [place], [facility] 120, [place] [id number] [place], tel: , [place]. [place], tel:[phone]. [phone] tel:[phone] Family History Family Member Diagnosis Age At [...] Insurance type Covered green party ID Authorization(s) [id number] Social History Type Description Quantity Date Captured [...] Complete OB Ultrasound > 14 Ordered Weeks (10034) Date Type Problem Goal Intervention Status Start [...]
--- OUTSIDE RECORDS SUMMARY | 2017-06-26 06:11 | External Medical Summary | Continuity of Care Document ---
:1985 Author Organization [facility] Address [address] [place], [place] [id number] Phone Care Team Providers Name Role Phone Meredith Landaverde MD Unavailable Unavailable Allergies, Adverse Reactions, Alerts Substance Reaction Severity Status Substance Type Unknown Medications Medication Instructions Dosage Effective Dates Status Comments (start - stop) cephalexin 500 mg take 1 capsule by ORAL 500 MG - Active capsule route 3 times every day folic acid 0.8 mg - Active capsule ORAL TABLET - Active Problems Condition Effective Dates (start - stop) Clinical Status Encounter for [employer] [facility] of normal - , first trimester 11 weeks gestation of - Irregular Bleeding Active Procedures Procedure Date Unknown Results Test Name Date and Time Measure Units Reference Range Abnormal Flag Comments Unknown Advance Directives Directive Yes / No Effective Date File Name Unknown Encounters Encounter Practice Location Reason(s) Diagnoses Date Provider Care Team Description For Visit Members [facility] [place] [facility] -2017 [address] 700 DEA PATEL Medical [facility]2, [place] Sid Quinonez [place], [place] 120, [id number], [place], tel:[phone] [place], [phone], [place]. tel:[phone] [facility] [place] Encounter Amana Referring [facility] for [employer] [facility] -2017 Sushil. 700 Provider: DEA PATEL of normal Medical Lucie 1522, , Center Cale [place], NATALIA Lau, first [place] 120, 700 Medical [id number], [place] [id number] [place] tel:+ weeks [place], [place] 120, 6790 gestation [id number], NATALIA [place], of [place]. [id number]. tel: tel: [phone] [facility] [place] [facility] -2017 Sushil. 700 [place], PO [facility] 1522, Center Sid [place], [place], [place] 120, [id number], [place], tel: [place], 6790 [id number], [place]. tel:[phone] Family History Family Member Diagnosis Age At [...] name Insurance type Covered libertarian ID Authorization(s) [employer] [id number] Social History Type Description Quantity Date Captured Alcohol Use Details No Caffeine Use Details Unknown Tobacco Use Status Unknown Smoking Status Unknown Vital Signs Date / Height Weight BMI Pulse Blood Temperature Respiratory Body Head BMI Time: Rate Pressure Rate Surface Circumference percentile Area Unknown Chief Complaint And Reason For Visit Unknown Chief Complaint And Reason For Visit Reason For Referral Reason For Referral Unknown Plan Of Care Date Type Action Status Appointment Lori Valdez BOOKED Future Order: Lab Order Pap Smear With HPV Reflex If ASCUS Ordered ([id number]) Date Type Problem Goal Intervention Status Start [...]
--- OUTSIDE RECORDS SUMMARY | 2017-06-26 06:11 | External Medical Summary | Continuity of Care Document ---
:1985 Author Organization [facility] Allergies Active Description Code Type Severity Reaction Onset Reported/ Identified Relationship Clinical to Patient Status Yes No Known 60477 3 N/A N/A Drug 0 Allergies Yes No Allergy 143 Drug N/A N/A 03/26/2013 Confirmed Information Aller but Available gy inactive Yes No Known 48318 ND N/A N/A 03/24/2015 Confirmed Drug Allergy 590 or Verified Medications Medication Packaging Start Date Stop Date Route Dosage Sig Capsule 12/16/2016 12/22/2016 CEPHALEXIN take 1 capsule by ORAL route 3 times every day Problems Date Dx Attending Type Code Diagnosis Diagnosed By Coded 08/01/2010 D 625.9 FEM GENITAL SYMPTOMS NOS 03/05/2011 D V72.40 PREG EXAM-UNCONFIRMED 07/25/2011 D V22.1 SUPERVIS OTH NORMAL PREG 09/04/2011 D V22.1 SUPERVIS OTH NORMAL PREG 09/05/2011 D V22.1 SUPERVIS OTH NORMAL PREG 09/24/2011 D V22.1 SUPERVIS OTH NORMAL PREG 10/19/2011 D 648.91 OTH CURR COND-DELIVERED 10/19/2011 D 656.61 EXCESS GRTH-DELIV 10/19/2011 D 664.21 DEL W 3 DEG LACERAT-DEL 10/19/2011 D 669.81 COMP LAB/DELIV NEC-DELIV 10/19/2011 D 780.79 OTHER MALAISE & FATIGUE 10/19/2011 D V02.51 ARUN CARRIER GRP B STREPT 10/19/2011 D V27.0 DELIVER-SINGLE LIVEBORN 08/27/2012 ASIA Martines V22.1 SUPERVIS OTH NORMAL SOPHY CHAVEZ 01/04/2013 ASIA Martines V22.1 SUPERVIS OTH NORMAL SOPHY CHAVEZ PREG 02/23/2013 ASIA Martines V22.1 SUPERVIS OTH NORMAL SOPHY CHAVEZ PREG 03/27/2013 ULLOM MINNICH D 645.11 POST TERM PREG SOPHY CHAVEZ DELIVERED 03/27/2013 ULKOJO Martines 653.51 DISPROP SOPHY CHAVEZ NOS-DELIV 03/27/2013 ASIA Martines 663.31 CORD ENTANGLE SOPHY CHAVEZ NEC-DELIV 03/27/2013 ASIA Martines 664.11 DEL W 2 DEG SOPHY CHAVEZ LACERAT-DEL 03/27/2013 ASIA Martines V27.0 DELIVER-SINGLE SOPHY CHAVEZ LIVEBORN 10/06/2014 ASIA Martines V22.1 SUPERVIS OT NORMAL SOPHY CHAEVZ PREG 02/02/2015 ASIA Martines V22.1 SUPERVIS OT NORMAL SOPHY CHAVEZ PREG 03/24/2015 ASIA Martines O47.03 False labor before SOPHY CHAVEZ 37 completed weeks of gest, third tri 03/24/2015 ASIA Martines Z3A.35 35 weeks gestation SOPHY CHAVEZ of 04/18/2015 ASIA Martines O09.293 Suprvsn of preg w SOPHY CHAVEZ poor reprodctv or obstet hx, third tri 04/18/2015 ASIA Martines O70.1 Second degree SOPHY CHAVEZ perineal laceration during delivery 04/18/2015 ASIA Martines O99.824 Streptococcus B SOPHY CHAVEZ carrier state complicating childbirth 04/18/2015 ASIA Martines 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 04/18/2015 ASIA Martines Z37.0 Single live SOPHY CHAVEZ 04/18/2015 ASIA Martines Z3A.39 39 weeks gestation SOPHY CHAVEZ of 02/12/2017 Sushil Piedra Z34.82 Encounter for suprvsn of normal , second trimester 02/12/2017 Sushil Piedra Z36.3 Encounter For Screening For Malformations 02/12/2017 Sushil Piedra Z3A.20 20 weeks gestation of 04/01/2017 Sushil Piedra Z34.82 Encounter for suprvsn of normal , second trimester 04/01/2017 Sushil Piedra Z3A.24 24 weeks gestation of 04/01/2017 Sushil Piedra W Z34.82 Encounter for suprvsn of normal , second trimester 04/01/2017 Sushil Piedra W Z3A.24 24 weeks gestation of 04/01/2017 Sushil Piedra W Z34.82 Encounter for suprvsn of normal , second trimester 04/01/2017 Sushil Piedra W Z3A.24 24 weeks gestation of 04/01/2017 Sushil Piedra W Z34.82 Encounter for suprvsn of normal , second trimester 04/01/2017 Sushil Piedra W Z3A.24 24 weeks gestation of 04/01/2017 Danita Zuleta O44.22 Partial Placenta Previa Nos Or W/out Hemorrhage, Second Trimester 04/01/2017 Danita Zuleta Z3A.20 20 weeks gestation of 04/01/2017 Danita Zuleta O44.22 Partial Placenta Previa Nos Or W/out Hemorrhage, Second Trimester 04/01/2017 Danita Zuleta Z3A.20 20 weeks gestation of 04/01/2017 Sushil Piedra W Z34.82 Encounter for suprvsn of normal , second trimester 04/01/2017 Sushil Piedra W Z36.3 Encounter For Screening For Malformations 04/01/2017 Sushil Piedra W Z3A.20 20 weeks gestation of 04/01/2017 Sushil Piedra W Z34.82 Encounter for suprvsn of normal , second trimester 04/01/2017 Sushil Piedra W Z36.3 Encounter For Screening For Malformations 04/01/2017 Sushil Piedra Z3A.20 20 weeks gestation of 04/01/2017 Sushil Piedra W Z34.82 Encounter for suprvsn of normal , second trimester 04/01/2017 Sushil Piedra W Z3A.15 15 weeks gestation of 04/01/2017 Sushil Piedra W Z34.82 Encounter for suprvsn of normal , second trimester 04/01/2017 Sushil Piedra Z3A.15 15 weeks gestation of 04/01/2017 Sushil Piedra W Z34.81 Encounter for suprvsn of normal , first trimester 04/01/2017 Sushil Piedra Z3A.11 11 weeks gestation of 04/01/2017 Sushil Piedra W Z34.81 Encounter for suprvsn of normal , first trimester 04/01/2017 Sushil Piedra W Z3A.11 11 weeks gestation of 05/07/2017 Sushil Piedra O44.23 Partial Placenta Previa Nos Or W/out Hemorrhage, Third Trimester 05/07/2017 Sushil Piedra Z3A.32 32 weeks gestation of 05/21/2017 Jaqueline Soliz W Z34.83 Encounter for L suprvsn of normal , third trimester 05/21/2017 Jaqueline Soliz Z3A.34 34 weeks gestation L of 06/01/2017 Jaqueline Soliz W Z34.83 Encounter for L suprvsn of normal , third trimester 06/01/2017 Jaqueline Soliz Z3A.34 34 weeks gestation L of 06/04/2017 Sushil Piedra W Z34.81 Encounter for suprvsn of normal , first trimester 06/04/2017 Sushil Piedra Z3A.11 11 weeks gestation of 06/04/2017 Sushil Piedra Z34.81 Encounter for suprvsn of normal , first trimester 06/04/2017 Sushil Piedra Z3A.11 11 weeks gestation of 06/04/2017 Sushil Piedra W Z34.82 Encounter for suprvsn of normal , second trimester 06/04/2017 Sushil Piedra W Z3A.15 15 weeks gestation of 06/04/2017 Sushil Piedra Z34.82 Encounter for suprvsn of normal , second trimester 06/04/2017 Sushil Piedra Z3A.15 15 weeks gestation of 06/04/2017 Sushil Piedra Z34.82 Encounter for suprvsn of normal , second trimester 06/04/2017 Sushil Piedra Z36.3 Encounter For Screening For Malformations 06/04/2017 Sushil Piedra Z3A.20 20 weeks gestation of 06/04/2017 Sushil Piedra Z34.82 Encounter for suprvsn of normal , second trimester 06/04/2017 Sushil Piedra W Z36.3 Encounter For Screening For Malformations 06/04/2017 Sushil Piedra W Z3A.20 20 weeks gestation of 06/04/2017 Sushil Piedra W Z34.82 Encounter for suprvsn of normal , second trimester 06/04/2017 Sushil Piedra W Z36.3 Encounter For Screening For Malformations 06/04/2017 Sushil Piedra W Z3A.20 20 weeks gestation of 06/04/2017 Danita Zuleta O44.22 Partial Placenta Previa Nos Or W/out Hemorrhage, Second Trimester 06/04/2017 ZuletaDanita Z3A.20 20 weeks gestation of 06/04/2017 Danita Zuleta O44.22 Partial Placenta Previa Nos Or W/out Hemorrhage, Second Trimester 06/04/2017 Danita Zuleta Z3A.20 20 weeks gestation of 06/04/2017 Sushil Piedra W Z34.82 Encounter for suprvsn of normal , second trimester 06/04/2017 Sushil Piedra W Z3A.24 24 weeks gestation of 06/04/2017 Sushil Piedra W Z34.82 Encounter for suprvsn of normal , second trimester 06/04/2017 Sushil Piedra W Z3A.24 24 weeks gestation of 06/04/2017 Sushil Piedra W Z34.83 Encounter for suprvsn of normal , third trimester 06/04/2017 Sushil Piedra W Z3A.28 28 weeks gestation of 06/04/2017 Sushil Piedra W Z34.83 Encounter for suprvsn of normal , third trimester 06/04/2017 Sushil Piedra W Z3A.28 28 weeks gestation of 06/04/2017 Sushil Piedra W Z34.83 Encounter for suprvsn of normal , third trimester 06/04/2017 Sushil Piedra W Z3A.30 30 weeks gestation of 06/04/2017 Sushil Piedra W Z34.83 Encounter for suprvsn of normal , third trimester 06/04/2017 Sushil Piedra W Z3A.30 30 weeks gestation of 06/04/2017 Sushil Piedra W O44.23 Partial Placenta Previa Nos Or W/out Hemorrhage, Third Trimester 06/04/2017 Sushil Piedra W Z3A.32 32 weeks gestation of 06/04/2017 Sushil Piedra W O44.23 Partial Placenta Previa Nos Or W/out Hemorrhage, Third Trimester 06/04/2017 Sushil Piedra R W Z3A.32 32 weeks gestation of 06/04/2017 Sushil Piedra W O44.23 Partial Placenta Previa Nos Or W/out Hemorrhage, Third Trimester 06/04/2017 Sushil Piedra W Z3A.32 32 weeks gestation of 06/04/2017 Sushil Piedra W O44.23 Partial Placenta Previa Nos Or W/out Hemorrhage, Third Trimester 06/04/2017 Sushil Piedra W Z3A.32 32 weeks gestation of 06/04/2017 Sushil Piedra W O44.23 Partial Placenta Previa Nos Or W/out Hemorrhage, Third Trimester 06/04/2017 Sushil Piedra W Z3A.32 32 weeks gestation of 06/04/2017 Sushil Piedra W Z34.83 Encounter for suprvsn of normal , third trimester 06/04/2017 Sushil Piedra W Z3A.32 32 weeks gestation of 06/04/2017 Sushil Piedra W Z34.83 Encounter for suprvsn of normal , third trimester 06/04/2017 Sushil Piedra W Z3A.32 32 weeks gestation of 06/04/2017 Jaqueline Soliz W Z34.83 Encounter for L suprvsn of normal , third trimester 06/04/2017 Jaqueline Soliz Z3A.34 34 weeks gestation L of 06/04/2017 Jaqueline Soliz W Z34.83 Encounter for L suprvsn of normal , third trimester 06/04/2017 Jaqueline Soliz Z3A.34 34 weeks gestation L of 06/04/2017 Jaqueline Soliz W Z34.83 Encounter for L suprvsn of normal , third trimester 06/04/2017 Jaqueline Soliz Z3A.34 34 weeks gestation L of 06/04/2017 Jaqueline Soliz W Z34.83 Encounter for L suprvsn of normal , third trimester 06/04/2017 Jaqueline Soliz Z3A.34 34 weeks gestation L of 06/04/2017 Jaqueline Soliz Z34.83 Encounter for L suprvsn of normal , third trimester 06/04/2017 Jaqueline Soliz Z3A.34 34 weeks gestation L of 06/16/2017 Jaqueline Soliz Z34.83 Encounter for L suprvsn of normal , third trimester 06/16/2017 Jaqueline Soliz Z3A.34 34 weeks gestation L of 06/16/2017 Jaqueline Soliz W Z34.83 Encounter for L suprvsn of normal , third trimester 06/16/2017 Jaqueline Soliz Z3A.34 34 weeks gestation L of Procedures Code Description [place] [address] GOLDIE, DNA, ASIA EARL MD, 08/01/2010 DIR PROBE SOPHY R 19329 ELIAS VAG, ASIA EARL MD, 08/01/2010 DNA, DIR PROBE SOPHY R 01707 TRICHOMONAS ASIA EARL MD, 08/01/2010 VAGIN, DIR PROBE SOPHY R 74183 RBC ANTIBODY ASIA EARL MD, 03/05/2011 SCREEN SOPHY R 75318 BLOOD TYPING, ASIA EARL MD, 03/05/2011 ABO SOPHY R 01026 BLOOD TYPING, ASIA EARL MD, 03/05/2011 RH (D) SOPHY R 68991 ROUTINE ASIA EARL MD, 07/25/2011 VENIPUNCTURE SOPHY R 94603 ASSAY, ASIA EARL MD, 07/25/2011 GLUCOSE, BLOOD QUANT SOPHY R 55556 GLUCOSE TEST ASIA EARL MD, 07/25/2011 SOPHY R 18255 HEMOGLOBIN ASIA EARL MD, 07/25/2011 SOPHY R 28407 ASIA EARL MD, 09/04/2011 NON-STRESS TEST SOPHY R 78132 URINALYSIS, ASIA EARL MD, 09/05/2011 AUTO, W/O SCOPE SOPHY R 69807 GOLDIE, DNA, ASIA EARL MD, 09/05/2011 DIR PROBE SOPHY R 63644 ELIAS VAG, ASIA EARL MD, 09/05/2011 DNA, DIR PROBE SOPHY R 26207 TRICHOMONAS ASIA EARL MD, 09/05/2011 VAGIN, DIR PROBE SOPHY R 63297 HEMOGLOBIN ASIA EARL MD, 09/24/2011 SOPHY R 0391 ANESTH ASIA EARL MD, 10/17/2011 INJECT-SPIN CANAL SOPHY R 7271 VACUUM EXT ASIA EARL MD, 10/17/2011 DEL W EPISIOT SOPHY R 7309 ARTIF RUPT ASIA EARL MD, 10/17/2011 MEMBRANES NEC SOPHY R 7534 ASIA EARL MD, 10/17/2011 MONITORING NEC SOPHY R 7569 REPAIR OB ASIA EARL MD, 10/17/2011 LACERATION NEC SOPHY R 66896 BLOOD TYPING, ASIA EARL MD, 08/27/2012 ABO SOPHY R 64305 BLOOD TYPING, ASIA EARL MD, 08/27/2012 RH (D) SOPHY R 06159 BLOOD TYPING, ASIA EARL MD, 08/27/2012 PATIENT SERUM SOPHY R 66894 ROUTINE ASIA EARL MD, 01/04/2013 VENIPUNCTURE SOPHY R 69442 ASSAY, ASIA EARL MD, 01/04/2013 GLUCOSE, BLOOD QUANT SOPHY R 38531 GLUCOSE TEST ASIA EARL MD, 01/04/2013 SOPHY R 56199 HEMOGLOBIN ASIA EARL MD, 01/04/2013 SOPHY R 71900 HEMOGLOBIN ASIA EARL MD, 02/23/2013 SOPHY R 7301 INDUCT ASIA EARL MD, 03/26/2013 LABOR-RUPT MEMB SOPHY R 734 MEDICAL ASIA EARL MD, 03/26/2013 INDUCTION LABOR SOPHY R 7359 MANUAL ASSIST ASIA EARL MD, 03/26/2013 DELIV NEC SOPHY R 7534 ASIA EARL MD, 03/26/2013 MONITORING NEC SOPHY R 7569 REPAIR OB ASIA EARL MD, 03/26/2013 LACERATION NEC SOPHY R 16769 BLOOD TYPING, ASIA EARL MD, 10/06/2014 ABO SOPHY R 15493 BLOOD TYPING, ASIA EARL MD, 10/06/2014 RH (D) SOPHY R 89186 BLOOD TYPING, ASIA EARL MD, 10/06/2014 PATIENT SERUM SOPHY R 70069 ROUTINE ASIA EARL MD, 02/02/2015 VENIPUNCTURE SOPHY R 85253 ASSAY, ASIA EARL MD, 02/02/2015 GLUCOSE, BLOOD QUANT SOPHY R 61454 GLUCOSE TEST ASIA EARL MD, 02/02/2015 SOPHY R 07502 HEMOGLOBIN ASIA EARL MD, 02/02/2015 SOPHY R 16810 URINALYSIS, ASIA EARL MD, 03/23/2015 AUTO, W/O SCOPE SOPHY R 85815 COMPLETE CBC, ASIA EARL MD, 03/23/2015 AUTOMATED SOPHY R 77610 HYDRATION IV ASIA EARL MD, 03/23/2015 INFUSION, INIT SOPHY R G0378 HOSPITAL ASIA EARL MD, 03/23/2015 OBSERVATION PER HR SOPHY R J7042 5% ASIA EARL MD, 03/23/2015 DESTROSE/NS SOPHY R J7120 RINGER'S ASIA EARL MD, 03/23/2015 LACTATE INFUSION SOPHY R 62852 HYDRATE IV ASIA EARL MD, 03/24/2015 INFUSION, ADD-ON SOPHY R Repair ASIA EARL MD, 04/17/2015 [id number] Perineum Skin, External SOPHY R Approach Drainage of ASIA EARL MD, 04/17/2015 50360PB Amniotic Fl, Therap from SOPHY R POC, Via Opening Delivery of ASIA EARL MD, 04/17/2015 [id number] Products of Conception, SOPHY R External Approach Introduce of ASIA EARL MD, 04/17/2015 [id number] Oth Therap Subst into Fem SOPHY R Reprod, Via Opening Introduce ASIA EARL MD, 04/17/2015 [id number] [facility] Anest[facility] in SOPHY R Epidural Space, Perc Monitoring of ASIA EARL MD, 04/17/2015 [id number] POC, Cardiac Rate, Match Up Worker SOPHY R Approach 80630 Venpnctr 12/12/2016 fngr/heel/ear stick routne 38559 OB Visit No 12/12/2016 Charge 38132 OB Panel With 12/12/2016 An HIV 92179 Cult bactr, 12/12/2016 aerobic, addl methods 84449 Cult, bactr, 12/12/2016 sallie colonycnt, urine 09726 Cult, bactr, 12/12/2016 ident isolate, urine 47011 Suscept 12/12/2016 study, microdilut/agar NALINI 36999 Infct antign, 12/12/2016 chlamydia trac, ampl 60654 Neisseria 12/12/2016 Gonorrhea, Amplified DNA 86137 OB Visit No 01/08/2017 Charge 09053 Ultrasnd exam 02/12/2017 of preg uterus, compl OB Visit No 02/12/2017 Charge 29101 OB Visit No 03/14/2017 Charge 56689 OB Visit No 04/09/2017 Charge 16419 OB Visit No 04/23/2017 Charge 57047 Ultrasnd preg 05/07/2017 uterus, flwup/repeat 92626 OB Visit No 05/07/2017 Charge 33194 OB Visit No 05/21/2017 Charge 03418 Immuniz 05/21/2017 admnin, 1 vac, sngl/combo 56727 TDAP VACCINE 05/21/2017 >7 IM Results Test Result Range ABO Type - 08/27/12 16:16 ABO Type O RH Type - 08/27/12 16:16 RH Type POS Antibody Screen - 08/27/12 16:16 Antibody Screen NEG Negative Gluc Ancelmo OB - 1 Hr - 01/04/13 09:58 Glucose Fasting 77 <=105 Glucose Tolerance 1 Hr OB 128 <=140 HGB - 01/04/13 08:30 HGB 12.9 G/DL 12.0-16.0 HGB - 02/23/13 10:00 HGB 13.8 G/DL 12.0-16.0 CBC - 03/26/13 07:25 Eos # 0.14 x10^3 0-0.5 Eos % 1.9 % 0-4 HCT 40.5 % 37.0-47.0 HGB 14.0 G/DL 12.0-16.0 Lymph # 1.41 x10^3 1.0-4.0 Lymph % 19.1 % 20-50 MCH 31.3 PG 27.0-31.0 MCHC 34.6 G/DL 32.0-36.0 MCV 90.6 FL 81-99 [place] # 0.60 x10^3 0.0-0.8 [place] % 8.1 % 1.0-9.0 MPV 12.0 FL 6.0-10.0 Platelet 188 x10^3 150-400 RBC 4.47 x10^3 4.20-5.40 RDW 12.3 % 12-15 WBC 7.39 x10^3 4.8-10.8 Baso # 0.02 x10^3 0-0.2 Baso % 0.3 % 0-2 Neut % 70.6 % 50-70 Neut # 5.22 x10^3 3.0-7.0 HCT - 03/27/13 07:00 HCT 38.6 % 37.0-47.0 HGB - 03/27/13 07:00 HGB 13.2 G/DL 12.0-16.0 ABO Type - 10/07/14 09:03 ABO Type O RH Type - 10/07/14 09:03 RH Type POS Antibody Screen - 10/07/14 09:03 Antibody Screen NEG Negative CBC - 03/23/15 22:42 Eos # 0.17 x10^3 0-0.5 Eos % 1.6 % 0-4 HCT 36.3 % 37.0-47.0 HGB 12.3 G/DL 12.0-16.0 Lymph # 1.44 x10^3 1.0-4.0 Lymph % 13.9 % 20-50 MCH 30.7 PG 27.0-31.0 MCHC 33.9 G/DL 32.0-36.0 MCV 90.5 FL 81-99 [place] # 0.55 x10^3 0.0-0.8 [place] % 5.3 % 1.0-9.0 MPV 10.9 FL 6.0-10.0 Platelet 204 x10^3 150-400 RBC 4.01 x10^3 4.20-5.40 RDW 12.2 % 12-15 WBC 10.39 x10^3 4.8-10.8 Baso # 0.02 x10^3 0-0.2 Baso % 0.2 % 0-2 Neut % 79.0 % 50-70 Neut # 8.21 x10^3 3.0-7.0 Urinalysis - 03/23/15 22:43 Bilirubin Negative Negative Blood Negative Negative Color Yellow Glucose Negative Negative Ketones Negative Negative Leukocyte Negative Negative Nitrite Negative Negative pH 7.0 5.0-9.0 Urine Appearance Clear Protein Negative Negative Urobilinogen 0.2 MG/DL 0.20 Specific [place] 1.015 1.005-1.030 Site VOID Culture Strep B Screen - 03/28/15 11:08 Source VAG Culture Strep B Screen See Comment CBC - 04/17/15 06:59 Eos # 0.18 x10^3 0-0.5 Eos % 2.8 % 0-4 HCT 39.3 % 37.0-47.0 HGB 13.3 G/DL 12.0-16.0 Lymph # 1.47 x10^3 1.0-4.0 Lymph % 22.8 % 20-50 MCH 30.6 PG 27.0-31.0 MCHC 33.8 G/DL 32.0-36.0 MCV 90.3 FL 81-99 [place] # 0.26 x10^3 0.0-0.8 [place] % 4.0 % 1.0-9.0 MPV 12.1 FL 6.0-10.0 Platelet 198 x10^3 150-400 RBC 4.35 x10^3 4.20-5.40 RDW 12.4 % 12-15 WBC 6.45 x10^3 4.8-10.8 Baso # 0.02 x10^3 0-0.2 Baso % 0.3 % 0-2 Neut % 70.1 % 50-70 Neut # 4.52 x10^3 3.0-7.0 HCT - 04/18/15 07:39 HCT 35.1 % 37.0-47.0 HGB - 04/18/15 07:39 HGB 11.9 G/DL 12.0-16.0 Encounters ACCT No. Visit Discharge Status Pt. Type Provider Facility Loc./Unit Complaint Date/Time [id number] 04/17/2015 04/18/2015 DIS Inpatient ULLOM Pioche NS1 06:00:00 14:30:00 RAJAT Plascencia MD, [facility] R [id number] 03/23/2015 03/24/2015 DIS Outpatien ULLOM Pioche NS1 21:52:00 08:28:00 chayo Plascencia MD, [facility] R [id number] 02/02/2015 02/02/2015 CLS Outpatien ULLOM Pioche ALAB 08:08:00 23:59:59 [id number] 10/07/2014 10/07/2014 DIS Outpatien ULLOM Pioche ALAB 07:58:00 07:58:00 chayo Plascencia MD, [facility] R [id number] 03/26/2013 03/27/2013 DIS Inpatient ULLOM Pioche NS1 06:35:00 11:55:00 RAJAT Plascencia MD, [facility] R [id number] 02/23/2013 02/23/2013 DIS Outpatien ULLOM Pioche ALAB 14:05:00 14:05:00 chayo Plascencia MD, [facility] R [id number] 01/04/2013 01/04/2013 DIS Outpatien ULLOM Pioche ALAB 08:34:00 08:34:00 chayo Plascencia MD, [facility] R [id number] 08/28/2012 08/28/2012 DIS Outpatien ULLOM Pioche ALAB 07:30:00 07:30:00 chayo Plascencia MD, [facility] R [id number] 10/17/2011 Document 09:45:00 Registrat ion [id number] 09/24/2011 Document 14:38:00 Registrat ion [id number] 09/05/2011 Document 09:58:00 Registrat ion [id number] 09/04/2011 Document 23:35:00 Registrat ion [id number] 07/25/2011 Document 08:15:00 Registrat ion [id number] 03/05/2011 Document 10:39:00 Registrat ion [id number] 08/01/2010 Document 11:53:00 Registrat ion [id number] 06/11/2017 06/11/2017 CLS Outpatien Tadeo, 14:00:00 23:59:59 t Sushil Wilkins [id number] 06/04/2017 06/04/2017 CLS Outpatien Tadeo, 14:00:00 23:59:59 t Sushil Wilkins [id number] 05/21/2017 05/21/2017 CLS Outpatien Martínez, 11:30:00 23:59:59 t Jaqueline Hodge [id number] 05/07/2017 05/07/2017 CLS Outpatien Tadeo, 14:00:00 23:59:59 t Sushil Wilkins [id number] 05/07/2017 05/07/2017 CLS Outpatien Tadeo, 13:45:00 23:59:59 t Sushil Wilkins [id number] 04/23/2017 04/23/2017 CLS Outpatien Tadeo, 15:15:00 23:59:59 t Sushil Wilkins [id number] 04/09/2017 04/09/2017 CLS Outpatien Tadeo, 14:00:00 23:59:59 t Sushil Wilkins [id number] 03/14/2017 03/14/2017 CLS Outpatien Tadeo, 14:00:00 23:59:59 t Sushil Wilkins [id number] 02/12/2017 02/12/2017 CLS Outpatien Zuleta, 16:15:00 23:59:59 t Danita Magaña [id number] 02/12/2017 02/12/2017 CLS Outpatien Tadeo, 15:45:00 23:59:59 t Sushil Wilkins [id number] 01/08/2017 01/08/2017 CLS Outpatien Tadeo, 16:15:00 23:59:59 t Sushil Wilkins [id number] 12/14/2016 12/14/2016 CLS Outpatien Tadeo, 16:02:00 23:59:59 t Sushil Wilkins [id number] 12/12/2016 12/12/2016 CLS Outpatien Tadeo, 10:45:00 23:59:59 t Sushil Wilkins [id number] 11/25/2016 11/25/2016 [facility] Isiah Piedra, 14:33:00 23:59:59 t Sushil Wilkins [id number] 06/18/2017 Document 13:50:00 Registrat ion
--- OUTSIDE RECORDS SUMMARY | 2017-06-26 06:11 | External Medical Summary | Continuity of Care Document ---
:1985 Author Organization [email or web address] Address [address] [place], [place] [phone] Phone Care Team Providers Name Role Phone Meredith Landaverde MD Unavailable Unavailable Allergies, Adverse Reactions, Alerts Substance Reaction Severity Status Substance Type Unknown Medications Medication Instructions Dosage Effective Dates (start - Status Comments stop) folic acid 0.8 mg capsule - Active ORAL TABLET - Active Problems Condition Effective Dates (start - stop) Clinical Status Encounter for suprvsn of normal - , first trimester 11 weeks gestation of - Irregular Bleeding Active Procedures Procedure Date Initial OB Visit No Charge - [employer] Urine Culture OB Panel With An HIV Infct antign, chlamydia trac, ampl Neisseria Gonorrhoeae, Amplification Venpnctr fngr/heel/ear stick routne Cult, bactr, ident isolate, urine Cult bactr, aerobic, addl methods Suscept study, microdilut/agar NALINI Results Test Name Date and Time Measure [...] fL 7.5-12.5 N 11:42:00 ABSOLUTE 6208 cells/uL 9755-7095 N NEUTROPHILS 11:42:00 ABSOLUTE 1630 cells/uL 850-3900 [...] or current infection withrubella virus.Test performed at [facility] [place] [address]Lajnhjw r: BISMARK MESA DO,MPH Panel Description: HIV [...] this purpose. For additional information please refer tohttp://education.[employer]/faq/ORD557(This link is being provided for informational/educational purposes only.) The performance of this assay has not been clinicallyvalidated in patients less than 2 years old. Test performed at [facility] [place] [address]Yzrhmdfb: BISMARK MESA DO,MPH Panel Description: Bacteria identified in Urine by Culture CULTURE, URINE, 11:40:00 SEE NOTE A CULTURE, URINE, ROUTINE ROUTINE MICRO NUMBER: [id number] TEST STATUS: PRELIMINARY SPECIMEN SOURCE: URINE SPECIMEN QUALITY: ADEQUATE RESULT: 50,000-100,000 CFU/mL of Escherichia coli , susceptibility test report to follow.REPORT COMMENT:RTest performed at [facility] [place] [address]Fwbwxuct: BISMARK MESA DO,MPH Panel Description: Bacteria identified in Urine by Culture CULTURE, URINE, 11:40:00 SEE NOTE A CULTURE, URINE, ROUTINE ROUTINE MICRO NUMBER: [id number] TEST STATUS: FINAL SPECIMEN SOURCE: URINE SPECIMEN [...] susceptibility to parenteral cefazolin.REPORT COMMENT:RTest performed at [facility] [id number] [place] [address]Ahbdhnhk: BISMARK MESA DO,MPH Panel Description: CHLAMYDIA/N. GONORRHOEAE RNA, TMA CHLAMYDIA NOT DETECTED NOT DETECTED N TRACHOMATIS RNA, 11:30:00 TMA NEISSERIA NOT DETECTED NOT DETECTED N GONORRHOEAE RNA, 11:30:00 TMA [id number] SEE NOTE This test was 11:30:00 performed using the kaufDAO2 Assay([employer] The analytical performance characteristics of this assay, when used to test SurePath specimens havebeen determined by [employer]. Test performed at [facility] [id number] [place] [address]Lkhczsip: BISMARK MESA DO,MPH Panel Description: Pap Smear With HPV Reflex If ASCUS Document Advance Directives Directive Yes / No Effective Date File Name Unknown Encounters Encounter Practice Location Reason(s) Diagnoses Date Provider Care Team Description For Visit [facility] En[facility]adeo [facility] [address]. [address] Provider: DEA PATEL [facility] [address], , Center , [place], [place], [place], [address], [address] Medical [id number], [place] [id number] [facility] tel:[phone] weeks [place], [address], 6790 gestation [id number], [place], [place], of [place]. [id number]. tel: tel: [phone] Family History Family Member Diagnosis Age At [...] Unknown Payers Payer name Insurance type Covered alliance party ID Authorization(s) [facility] [id number] Social History Type Description Quantity Date Captured Alcohol Use Details No Caffeine Use Details No Tobacco Use Status Never smoked tobacco Smoking Status Never smoker Vital Signs Date / Height Weight BMI Pulse Blood Temperature Respiratory Body Head BMI Time: Rate Pressure Rate Surface Circumference percentile Area 139.70 21.2 113/80 2017 lbs 4 mm[Hg] 10:50 kg/m AM eter (2) Chief Complaint And Reason For Visit Unknown Chief Complaint And Reason For Visit Reason For Referral Reason For Referral Unknown Plan Of Care Date Type Action Status Appointment Lori Valdez BOOKED Date Type Problem [...]
--- OUTSIDE RECORDS SUMMARY | 2017-06-26 06:11 | External Medical Summary | Continuity of Care Document ---
:1985 Author Organization [facility] Address [address] [place], [place] [id number] Phone Care Team Providers Name Role Phone Meredith Landaverde MD Unavailable Unavailable Allergies, Adverse Reactions, Alerts Substance Reaction Severity Status Substance Type Unknown Medications Medication Instructions Dosage Effective Dates Status Comments (start - stop) folic acid 0.8 mg - Active capsule ORAL - Active TABLET cephalexin 500 mg take 1 capsule by 500 MG - No Longer capsule ORAL route 3 times Active every day Problems Condition Effective Dates (start - stop) Clinical Status Encounter for [facility] of normal - , first trimester 11 weeks gestation of - Irregular Bleeding Active Procedures Procedure Date Unknown Results Test Name Date and Time Measure Units Reference Range Abnormal Flag Comments Unknown Advance Directives Directive Yes / No Effective Date File Name Unknown Encounters Encounter Practice Location Reason(s) Diagnoses Date Provider Care Team Description For Visit Members [facility] -2017 [address] 700 DEA PATEL Medical 1522, [place] Sid Quinonez [place], [place] 120, [id number], [place], tel:[phone] [place], [phone], [place]. tel:[phone] [facility] [place] Encounter [place] Referring [facility] for [facility] -2016 Sushil. 700 Provider: DEA PATEL of normal Medical Lucie 1522, , Center Cale Quinone[place], NATALIA Lau, first [place] 120, 700 Medical [id number], [place] [id number] [place] [address] tel:9 weeks [place], [place] 120, 6790 gestation [id number], [place], of [place]. [id number]. tel: tel: [phone] Family History Family Member Diagnosis Age At [...] Unknown Payers Payer name Insurance type Covered constitution party ID Authorization(s) Kout [id number] Social History Type Description Quantity Date Captured [...]
--- OUTSIDE RECORDS SUMMARY | 2017-06-26 06:11 | External Medical Summary | Continuity of Care Document ---
:1985 Author Organization [facility] Address [address] [place], [place] [id number] Phone Care Team Providers Name Role Phone [...] third trimester 34 weeks gestation of - Encounter for suprvsn [...] suprvsn of normal - , third trimester Encounter For Screening For - Streptococcus B 36 weeks gestation of - Encounter for suprvsn of normal - , third trimester 32 weeks gestation of - Encounter for suprvsn of normal - , third trimester 28 weeks gestation of - Encounter for suprvsn of normal - , third trimester 30 weeks gestation of - Irregular Bleeding Active Procedures Procedure Date OB Visit No Charge - [employer] Immun[employer]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 700 Provider: Pierre PATEL, , third 8 Medical Lucie MALIN Box trimesterEncounte [place] Cale Garrison, 1522, r For [address], Screening For 120, Medical [place], Streptococcus B36 [facility] [id number], weeks gestation [place], [facility] 120, [place] of [id number] [place], tel:[phone] , [place]. [place], tel: [phone]. [phone] tel:[phone] Nayely [place] Encounter for May- Martínez Referring In Womens suprvsn of normal 0-201 Jaqueline. Provider: Pierre PATEL, , third 8 700 Lucie [address] [id number] weeks Medical Cale G[place], 1522, gestation of Center [address] [place], Dr [facility] Medical [place], 120, [place] [id number], [place] [facility] 120, [place] FISHER, tel:[phone] [place], , [place]. [id number]. tel: tel:[phone] Nayely [place] Encounter for Apr- Tadeo Referring In Womens suprvsn of normal 7-201 Sushil. 700 Provider: Pierre PATEL, , third 7 Medical Lucie MALIN Box [id number] weeks [place] Cale Garrison, 1522, gestation of Ardian Quinonez, 120, Medical [facility] [id number], [place], [place] 120, [place] [id number] [place], tel: , [place]. [place]ALIA, tel: [phone]. [id number] tel:[phone] Nayely [place] Partial Placenta Dec-2 Tadeo Referring In Womens Ultrasound Previa Nos Or 7-201 Sushil. 700 Provider: Pierre PATEL, W/out Hemorrhage, 7 Medical Lucie PO [address] Third [id number] Center Cale [place], 1522, weeks gestation [place] Quinonez, of 120, Medical [place] [facility] [id number], NATALIA, [facility] 120, [place] [id number] [place], tel: , [place], tel: [phone]. [phone] tel:[phone] Nayely [place] Encounter for Dec-1 Tadeo Referring In Womens suprvsn of normal 3-201 Sushil. 700 Provider: Pierre PATEL, , third 7 Medical Lucie PO Box [id number] weeks [place] Cale Garrison, 1522, gestation of [place] Quinonez, 120, Medical [place] [facility] [id number], [place], [facility] 120, [place] [id number] [place], tel: , [place], tel: [phone]. [phone] tel:[phone] Nayely [place] Encounter for Nov-2 Tadeo Referring In Womens suprvsn of normal 9-201 Sushil. 700 Provider: Pierre PATEL, , third 7 Medical Lucie PO Box [id number] weeks Center Cale [place], 1522, gestation of [place] Quinonez, 120, Medical [place] [facility] [id number], [place], [facility] 120, [place] [id number] [place], tel: , [place]. [place] tel: [phone]. [phone] tel:[phone] Nayely [place] Encounter for Nov-0 Tadeo Referring In Womens suprvsn of normal 3-201 Sushil. 700 Provider: Pierre PATEL, , second 7 Medical Lucie PO Box [id number] weeks Center Cale [place], 1522, gestation of [place] Quinonez, 120, Medical [facility] [facility] [id number], [place], [facility] 120, [place] [id number] [place], tel: , [place], tel: [phone]. [phone] tel:[phone] Nayely [place] Partial Placenta Oct-0 Zuleta Referring In Womens Previa Nos Or 4-201 Danita. Provider: Pierre PATEL, W/out Hemorrhage, [address] [place] [address] Meli, 1522, [id number] weeks [place], gestation of Dr [facility], 120, Center [id number], [place], [facility] 120, [place] FISHER, tel:[phone] [place], , [place]. [id number]. tel: tel: [phone] Nayely [place] Encounter for Oct-0 Tadeo Referring In Womens Ultrasound suprvsn of normal 4-201 Sushil. 700 Provider: Pierre PATEL, , second 7 Medical Lucie PO Box [facility]Encounte [facility] Meli, 1522, r For [place] Quinonez, Screening For 120, Medical NATALIA, [id number] [facility] [id number], weeks gestation [place], [facility] 120, [place] of [id number] [place], tel: , [place], tel: [phone]. [phone] tel:[phone] Nayely [place] Encounter for Aug-3 Tadeo Referring In Womens suprvsn of normal 0-201 Sushil. 700 Provider: Pierre PATEL, , second 7 Medical Lucie PO Box [id number] weeks [place] Cale Garrison, 1522, gestation of [place] Quinonez, 120, Medical [facility] [facility] [id number], [place], [facility] 120, [place] [id number] [place], tel: , [place]. [place], tel: [phone]. [phone] tel:[phone] Nayely [place] Encounter for Aug-0 Tadeo Referring In Womens suprvsn of normal 3-201 Sushil. 700 Provider: Pierre PATEL, , first 7 Medical Lucie PO Box [id number] weeks Center Cale [place], 1522, gestation of [place] Quinonez 700 [place], 120, [facility] [id number], [place], [facility] 120, [id number] [place], tel: , . NATALIA, [id number] tel: [phone]. [phone] tel:[phone] Family History Family Member Diagnosis Age At [...] Record Payers Payer name Insurance type Covered republican ID Authorization(s) [employer] [place] - Medicaid [place] [id number] [facility] [id number] [employer] [place] - Medicaid [place] [id number] Social History Type Description Quantity Date Captured Alcohol Use Details No Caffeine Use Details Unknown Tobacco Use Status Unknown Smoking Status Never smoker Vital Signs Date / Height Weight BMI Pulse Blood Temperature Respiratory Body Head BMI Time: Rate Pressure Rate Surface Circumference percentile Area 170.30 25.8 108/71 -2018 lbs 9 mm[Hg] 11:35 kg/m AM eter (2) Chief Complaint And Reason For Visit Unknown Chief Complaint And Reason For Visit Reason For Referral Reason For Referral Unknown Plan Of Care Date Type Action Status Appointment Lori Valdez BOOKED Future Order: Radiology Order Ultrasound OB Follow-up ([id number]) Ordered Future Order: Radiology Order Complete OB Ultrasound > 14 Ordered Weeks ([id number]) Date Type Problem Goal Intervention Status Start [...]
[2017-06-26] MEDS ORDERED: AMPICILLIN 2 GM in NS 100 ML IV ONE (06:30)
[2017-06-26] MEDS: LR 1,000 ML IV PRN ×2 (06:35→10:26)
[2017-06-26 06:55] VITALS: BMI 26.3
[2017-06-26] MEDS ORDERED: AMPICILLIN 1 GM in NS 50 ML IV SCH (10:30)
[2017-06-26] MEDS ORDERED: NALOXONE 0.4 MG/ML INJECTION IVP PRN (10:32)
[2017-06-26] MEDS ORDERED: DiphenhydrAMINE 50 MG/ML INJECTION IVP PRN (10:32)
[2017-06-26] MEDS ORDERED: ROPIVACAINE 1% 10MG/ML INJ 200 MG, SUFentanil 50 MCG in NS 100 ML EPI PRN (10:32)
[2017-06-26] MEDS ORDERED: ONDANSETRON 4 MG/2 ML INJECTION IVP PRN (10:32)
--- NOTE | 2017-06-26 10:32 | Anesthesia Preoperative Report ---
Anesthesia Epidural/Spinal Rec - Date and Time Date: 06/26/17 Procedure: Labor Epidural Plan: Epidural - Vital Signs Vital Signs: Temperature 97.8 F 06/26/17 06:45 Pulse Rate 79 06/26/17 06:45 Respiratory Rate 20 06/26/17 06:45 Blood Pressure 116/81 06/26/17 06:45 Pulse Oximetry 99 06/26/17 06:45 /Para: P:3 - Medictaions & Allergies Inpatient Medications: Current Medications Acetaminophen (Tylenol) 500 - 1,000 mg PO Q4H PRN PRN Reason: Pain Al Hydroxide/Mg Hydroxide (Maalox Plus) 30 ml PO Q3H PRN PRN Reason: Indigestion Calcium Carbonate (Tums) 500 - 1,000 mg PO Q2H PRN PRN Reason: Indigestion Carboprost Tromethamine (Hemabate) 250 mcg IM O PRN PRN Reason: .Downtime Ampicillin Sodium 1 gm/ Sodium (Chloride) 50 mls @ 100 mls/hr IV Q4H ELLYN Last Admin: 06/26/17 10:25 Dose: 100 mls/hr Dextrose/Lactated Ringer's (Dextrose 5%-Lactated Ringers) 1,000 mls @ 125 mls/ hr IV .Q8H PRN PRN Reason: Labor Last Admin: 06/26/17 07:01 Dose: 125 mls/hr Lactated Ringer's (Lactated Ringers) 1,000 mls @ 999 mls/hr IV .Q1H1M PRN Last Admin: 06/26/17 10:26 Dose: 999 mls/hr Oxytocin (Pitocin Drip) 30 unit in 500 mls @ 2 mls/hr IV .Q24H PRN; Protocol PRN Reason: Induction/Augmentation Last Admin: 06/26/17 07:01 Dose: 2 mls/hr Lidocaine HCl (Xylocaine-Mpf 1% Vial) 0.2 mg ID O PRN PRN Reason: IV Start Methylergonovine Maleate (Methergine) 0.2 mg IM O PRN Misoprostol (Cytotec) 800 mcg UT ONCE PRN Allergies/Adverse Reactions: Allergies Allergy/AdvReac Type Severity Reaction Status Date / Time No Known Allergies Allergy Verified 06/09/17 11:49 - Medical History Other History: Reports: Now - Surgical History Reproductive Surgery/Treatment: DENIES: Section Anesthesia Reactions: None Hx Family Anesthesia Reaction: No - Social History Smoking Status: Never smoker Second Hand Exposure: No Substance Use Type: does not use - Pertinent Findings Lab Data: CBC and BMP 06/26/17 06:27 - Physical Exam Respiratory Exam: lungs clear, bilateral breath sounds equal Cardiovascular Exam: regular rate and rhythm - Airway Assessment Mallampati Score: II TMD: 3 Fingerbreadths Neck Extension: good Overall Assessment: may be difficult intubation - ASA ASA Score: 2 - Discussion Discussion: Discussed risks/options/alternatives of anesthesia and questions answered. Patient consents. Nursing pain assessment noted. Anesthesia Discussion: spouse Attestation Statement: Prior to the delivery of any anesthetic medication, I examined the patient, developed the plan, obtained the patient's consent and discussed the risk and benefits of the procedure with the patient/guardian.
[2017-06-26] MEDS ORDERED: DiphenhydrAMINE 25 MG CAPSULE PO PRN (13:33)
[2017-06-26] MEDS ORDERED: HYDROCORTISONE 2.5% CREAM 30gm RECTALLY PRN (13:33)
[2017-06-26] MEDS ORDERED: HYDROCODONE/APAP 5mg/325mg TABLET PO PRN (13:33)
[2017-06-26] MEDS ORDERED: BENZOCAINE 20% SPRAY 0.5 ML MM ONE (13:33)
[2017-06-26] MEDS: IBUPROFEN 800 MG TABLET PO PRN (15:14)
--- NOTE | 2017-06-26 16:37 | Anesthesia Postoperative Note ---
- Date and Time Date: 06/26/17 Time: 16:36 - Status Patient Participated in Evaluation: Patient Participated in Person Vital Signs: Temperature 97.7 F 06/26/17 15:45 Pulse Rate 66 06/26/17 15:45 Respiratory Rate 14 06/26/17 15:45 Blood Pressure 113/72 06/26/17 15:45 Pulse Oximetry 99 06/26/17 06:45 Respiratory Function: Airway Patent, Regular Respirations Cardiovascular Function: Regular Pulse Mental Status: Alert and Oriented Pain Intensity: 0 Hydration: Taking PO Fluids Complications During Recover: None Apparent Post Anesthesia Care Notes: moves lower extremeties bilat - Follow-Up Instructions Instructions: Per Surgeon
--- NOTE | 2017-06-26 18:20 | Labor and Delivery Note ---
DATE OF DELIVERY: 06/26/2017 DIAGNOSES 1. 32-year-old white female, G5, P3 at 39 weeks 2 days gestational age. 2. Pitocin induction of labor for logistics. 3. Epidural anesthesia. 4. Artificial rupture of membranes. 5. Spontaneous vaginal delivery. 6. Nuchal cord x 1. 7. Second-degree perineal laceration. 8. Female , 4014 g, 8/9 Apgars (8 pounds 14 ounces) (Louisa Thomas). 9. GBS prophylaxis - received two doses. DESCRIPTION This is patient of mine who was brought in for an induction today for logistics. Cervix was initially 1.5 cm dilated. Pit reached a maximum of 24 milliunits a minute. She received a block and then artificial rupture of membranes occurred. She is getting GBS prophylaxis and received two doses. She made it to complete dilation and shortly thereafter we had a spontaneous vaginal delivery. There was a nuchal cord x 1 that was elevated and delivered through. The cord was allowed to drain for about a minute and a half before it was doubly clamped and cut. 's father cut the cord. Infant was initially placed on the mother's abdomen. There is a second-degree perineal laceration that was repaired using 3-0 Vicryl and 3-0 chromic. Maternal blood type is O+, rubella is immune. [facility]
[2017-06-26 21:00] VITALS: BP 112/74; RESP 16; O2SAT 98
[2017-06-26] MEDS: OXYTOCIN DRIP 30 UNIT/500 ML ML IV SCH (21:02)
[2017-06-27 07:23] VITALS: PULSE 52; TEMP 97.8
[2017-06-27] MEDS ORDERED: DOCUSATE CALCIUM 240 MG CAPSULE PO SCH (09:00)
[2017-06-27] MEDS: IBUPROFEN 800 MG TABLET PO PRN (09:11)
--- NOTE | 2017-06-27 10:56 | Progress Note ---
OB PP Progress Note Free Text - Date Date: 06/27/17 - Progress Note Progress Note: vss af doing well desires dc today baby being watched for gbs another day dc instructions reviewed q&a-krb
== END 2017-06-27 17:00 | disposition home or self-care (01) | DRG 775 ==
LOC: MC 06:05
PROVIDERS: ADMIT Obstetrics & Gynecology; ATTEND Obstetrics & Gynecology